=== PATIENT | female | born 1970 | race Caucasian/White ===

== ENCOUNTER → 2023-09-14 06:45 | Outpatient (REF) | payer OTHER, SELFPAY | LOC: RAD 06:45 | PROVIDERS: ATTENDING PHYSICIAN Internal Medicine Cardiovascular Disease; FAMILY PHYSICIAN Physician Assistant Medical | DX: D35.02 Benign neoplasm of left adrenal gland (principal) | CPT/HCPCS: 74150 ==

== ENCOUNTER → 2023-09-20 07:47 | Outpatient (REF) | payer OTHER, SELFPAY | LOC: RSP 07:47 | PROVIDERS: ATTENDING PHYSICIAN Internal Medicine Rheumatology; FAMILY PHYSICIAN Physician Assistant Medical | DX: M35.00 Sjogren syndrome, unspecified (principal); R05.3 Chronic cough; R76.8 Other specified abnormal immunological findings in serum | CPT/HCPCS: 94727; 94729; 88738; 94010 ==

== ENCOUNTER 2023-10-03 21:01 | Inpatient (IN) | payer OTHER, SELFPAY ==
[2023-10-03 17:43] VITALS: BP 135/84
[2023-10-03 18:12] LABS: % Basophils 0.4 % (0-2); % Eosinophils 1.3 % (0-6); % Immature Granulocytes 0.2 % (0-0.5); % Lymphocytes 24.3 % (20.5-51.1); % Monocytes 8.2 % (1.7-9.3); % Neutrophils 65.6 % (42.2-75.2); Absolute Eosinophils 0.1 10^3/uL (0-0.7); Absolute Lymphocytes 1.4 10^3/uL (1.2-3.4); Absolute Monocytes 0.5 10^3/uL (0.1-0.6); Absolute Neutrophils 3.7 10^3/uL (1.4-6.5); Hematocrit 35.3 % (37.0-47.0); Hemoglobin 12.3 g/dL (12.0-16.0); Mean Corp Hgb Conc. 34.8 g/dL (33.0-37.0); Mean Corpuscular Hgb 28.9 pg (27.0-31.0); Mean Corpuscular Volume 82.9 fL (81.0-99.0); Mean Platelet Volume 10.2 fL (7.4-10.4); Nucleated Red Blood Cells % 0 %; Platelet Count 269 10^3/uL (130-400); Red Blood Cell Count 4.26 10^6/uL (4.20-5.40); Red Cell Dist. Width 14.9 % (11.5-14.5); White Blood Cell Count 5.6 10^3/uL (4.8-10.8)
[2023-10-03 18:46] LABS: ALT (SGPT) 18 U/L (0-35); AST (SGOT) 27 U/L (14-36); Albumin 4.1 g/dl (3.5-5.0); Alkaline Phosphatase 102 U/L (38-126); Blood Urea Nitrogen 9 mg/dl (7-17); Calcium 9.3 mg/dl (8.4-10.2); Carbon Dioxide 18 mmol/L (22-30); Chloride 110 mmol/L (98-107); Glucose 110 mg/dl (70-99); Potassium 2.2 mmol/L (3.5-5.1); Sodium 137 mmol/L (135-145); Total Bilirubin 0.5 mg/dl (0.2-1.3); eGFR 44.99
--- NOTE | 2023-10-03 19:16 | ED.GENMED ---
History of Present Illness
General
Chief Complaint: Abnormal Lab Value
Source: patient
Exam Limitations: none
Time Seen by Provider: 10/03/23 19:14
Travel History
Have you had any contact with someone who has COVID-19?: No
Do you have any symptoms of coronavirus? Fever > 100 degrees, chills, cough, shortness of breath, sore throat, loss of taste or smell, muscle aches, or headache?: No
History of Present Illness
History of Present Illness:
Patient has felt off for months if not longer. Diagnosed with Sjogren's syndrome. Had a potassium of 3.0 in August. With continually not feeling well patient had labs done 3 days ago which showed a potassium of 2.5. Sent in for further care. No
chest pain or shortness of breath. Multiple other symptoms including a arthritis like picture in her feet general fatigue and weakness. Patient is not currently taking a diuretic.
Past History
Past History
ED Past Medical History: HTN, Hypercholesterolemia and Other (Sjogren syndrome); Negative IDDM or NIDDM
ED Past Surgical History: Gynecological; Negative Appendectomy, Bowel resection, Cardiac or Cholecystectomy
Social History
Tobacco: Non-smoker
Alcohol: None
Drug: None
Personal:
Living: with family
Employment: Employed
Family History
Family History: Other (Sister with gallbladder disease); Negative Early CAD or CAD
Phy Exam
Physical Exam
Physical Exam:
GENERAL: Alert and oriented in no apparent distress
EYE: Orbits normal.
NECK: Supple, no thyroid palpable
ENT: Pharynx without erythema
CARDIAC: Regular rate and rhythm without any obvious murmurs.
LUNGS: Clear breath sounds,normal
ABDOMEN: Soft, without focal tenderness or distention
NEUROLOGICAL: Alert and oriented , grossly non-focal
SKIN: Warm and dry, erythematous hue to both dorsal feet and erythematous hue to both cheeks
MUSCULOSKELETAL: Mild swelling of both dorsal feet
PSYCH: Normal and appropriate interaction.
Course
Orders/Labs/Results
Orders:
Orders
10/03/23 Dinner
Regular
At Your Request: Full Participation
10/03/23 17:47
EKG [Electrocardiogram (*1)] Urgent
Reason for Study: Other
Other Reason for Exam: hypokalemia
10/03/23 17:48
EKG- Treatment ONCE
10/03/23 18:00
Complete Blood Count/With Diff Urgent
Comprehensive Metabolic Panel Urgent
Magnesium Urgent
Comment: ADD ON
10/03/23 19:15
Add On- LAB Urgent
Tests Added?: magnesium
10/03/23 19:23
Potassium Chloride 10% Elixir [KCl Elixir] 40 meq PO NOW STA
10/03/23 19:44
Potassium Chloride [KCl] 40 meq 0.9% Sodium Chloride 250 ml [Nss] 250 ml IV NOW
10/03/23 20:17
Admit/Transfer Patient As Directed
Co-Sign Provider:
Level of Care: Inpatient admission
Assign to:: Telemetry
Physician / Group: fili
Diagnosis: hypokalemia
Reason for Telemetry: Arrhythmia
Date to Stop Telemetry: 10/06/23
Time to Stop Telemetry: 11:00
Reason for Hospitalization: hypokalemia
Expected length of stay greater than two midnights?: Yes
ELOS- Estimated Length of Stay in days: 2
I certify the patient meets the requirements for IP care: Yes
10/03/23 20:18
Code Status As Directed
Resuscitation Status: Full Code
10/03/23 20:33
0.9% Sodium Chloride 1000 ml [Nss] 1,000 ml IV 100 mls/hr
10/03/23 20:38
Urinalysis Reflex To Culture Urgent
Date Specimen was Collected: 10/03/23
Time Specimen was Collected: 20:34
Urine Microscopic Reflex Cult Urgent
10/03/23 21:52
Activity As Directed
Activity Level: As Tolerated
Vital Signs As Directed
Frequency: Per unit guidelines
DX Deep Vein Thrombosis Video Routine
10/04/23 06:00
Complete Blood Count/With Diff IN AM
Comprehensive Metabolic Panel IN AM
10/04/23 08:00
Heparin 5,000 units SC Q12
10/06/23 11:00
DC Protocol for Telemetry ONCE
Abnormal Lab Results
10/03/23 10/03/23
18:00 20:38
Hct 35.3 L %
(37.0-47.0)
RDW 14.9 H %
(11.5-14.5)
Potassium 2.2 L* mmol/L
(3.5-5.1)
Chloride 110 H mmol/L
(98-107)
Carbon Dioxide 18 L mmol/L
(22-30)
Creatinine 1.4 H mg/dL
(0.6-1.0)
Glucose 110 H mg/dl
(70-99)
Magnesium 2.5 H mg/dl
(1.6-2.3)
Leukocyte Esterase Rfl Trace A
(Negative)
10/03/23 18:00
10/03/23 18:00
Vital Signs
Initial and Last Documented VS:
Initial Vital Signs
Temp Pulse Resp BP Pulse Ox
99.1 F 89 18 135/84 99
10/03/23 17:43 10/03/23 17:43 10/03/23 17:43 10/03/23 17:43 10/03/23 17:43
Last Documented Vital Signs
Temp Pulse Resp BP Pulse Ox
98.1 F 78 18 102/62 100
10/03/23 23:05 10/03/23 23:05 10/03/23 23:05 10/03/23 23:05 10/03/23 23:05
MDM/Problems Addressed
Differential Diagnosis Includes:
Severe hypokalemia. 40 of potassium ordered orally. 40 IV. Patient currently being monitored. Hospitalist contacted.
*EKG
Interpreted by ED Provider?: Yes
Interpretation: abnormal
Comparison EKG: changes noted
Heart Rate: 78
Rhythm: sinus
[place]: normal axis
Interval: normal interval
QRS Pattern: normal QRS
Ischemia: T-wave inversion
*Critical Care Note
Total Time (30-74mins, 75-104mins- exclusive of procedures): Not Applicable
Data Reviewed
Review of Other/Old Records Reveals: Labs and Testing
ED Attending Note
-
Portions of this chart may have been created with voice recognition software.� Occasional wrong word or��sound alike� substitutions may have occurred due to the inherent limitations of voice recognition software.
Discharge Plan
Departure
Patient Disposition: Admit
Date of Disposition: 10/03/23
Time of Disposition: 19:39
Presentation/result/management discussed w/ accepting MD/DO: Hospitalist
Discharge Problem:
Severe hypokalemia
Interventions
Interventions:
*Risk Screen - Suicide Last Done: 10/03/23 19:40
*General Assessment Last Done: 10/03/23 19:40
*Neglect/Abuse Screening Last Done: 10/03/23 19:40
ED- Fall Risk Assessment Last Done: 10/03/23 19:40
*ED COVID-19 Vaccine History Last Done: 10/03/23 19:44
*Nursing Disposition Last Done: 10/03/23 21:54
Discharge Date and Time
Discharge Date/Time: 10/03/23 21:45
[2023-10-03 19:25] VITALS: BP 150/79
[2023-10-03 19:40] VITALS: BMI 26.2
[2023-10-03] MEDS: KCL ELIXIR 40 MEQ PO (19:51)
[2023-10-03 20:00] VITALS: BP 128/79
[2023-10-03 20:05] LABS: Magnesium 2.5 mg/dl (1.6-2.3)
[2023-10-03] MEDS: KCL 270 MEQ IV (20:14)
--- NOTE | 2023-10-03 20:20 | HPS.HSE ---
Family Physician
-
Family Physician: Bethany Arias
Chief Complaint
-
hypokalemia
History of Present Illness
53-year-old female past medical history of Sjogren syndrome, adrenal adenoma, hypertension, hypercholesteremia, hypokalemia presenting with lab work 3 days ago which showed potassium of 2.5.
Patient states that she was diagnosed with adrenal adenoma [address] Salas and started on eplerenone on that time. She states that since then eplerenone dosage needed to be increased. The adrenal adenoma was not followed for many years
but she recently had a CT scan in August which showed a second adenoma.
Patient states that she had elevated blood pressure at the time of the adrenal adenoma discovery. However in the past several years blood pressure has been stable. She recently was taken off of hydrochlorothiazide a few months ago after she was
diagnosed with Sjogren syndrome/possible lupus overlap syndrome few months ago. She was instead placed on losartan. She states that recently her blood pressure has been on the lower side sometimes as low as 90s.
Patient was recently having severe weakness, body pains, swelling and pain in her left big toe associated with swelling. She was tested negative for gout. She has been on several courses of prednisone for these joint pains/back pain.
She denies any nausea vomiting or diarrhea. She denies any abdominal pain. Denies chest pain or shortness of breath.
She has not started treatment for Sjogren's yet.
She denies smoking or alcohol use.
Medical History
Past Medical History
Past Medical History: Reports Other (Sjogren syndrome, adrenal adenoma, hypertension, hypercholesteremia, hypokalemia)
Past Surgical History: Reports
Social History
Tobacco: Non-smoker
Alcohol: None
Drug: None
Family History
Family History: Not pertinent
Allergies / Home Medications
Allergies reflects when Allergies were last updated in [employer].
Home Medications with original date entered in [employer]
Allergy/Medication List:
Allergies
Allergy/AdvReac Type Severity Reaction Status Date / Time
labetalol [Labetalol] Allergy Rash Verified 02/29/20 07:00
Review of Systems
-
History Source: Patient
A 12 point ROS was completed and negative except as noted: Yes
Constitutional: Reports No Symptoms
EENT: Reports No Symptoms
Respiratory: Reports No Symptoms
Cardiac: Reports No Symptoms
Abdomen/GI: Reports No Symptoms
: Reports No Symptoms
Musculoskeletal: Reports No Symptoms
Skin: Reports No Symptoms
Neurological: Reports No Symptoms
Endocrine: Reports No Symptoms
Hematologic/Lymphatic: Reports No Symptoms
Psych: Reports No Symptoms
Physical Exam
Vital Signs
Vital Signs
Temp Pulse Resp BP Pulse Ox
99.1 F 89 11 150/79 98
10/03/23 17:43 10/03/23 19:30 10/03/23 19:30 10/03/23 19:25 10/03/23 19:30
Physical Exam
General: Well Developed, Well Nourished and No Apparent Distress
HEENT: NormoCephalic, Moist mucous membranes and Atraumatic
Respiratory: Clear
Cardiac: S1/S2 and Regular Rhythm; No Murmur or Rub
GI: Soft, Non Tender, Non Distended and Normal Bowel Sounds; No Organomegaly
Rectal: Deferred by Provider
Musculoskeletal: No Clubbing, No Cyanosis and No Edema
Skin: No Rash
Neuro: Nonfocal/grossly intact
Laboratory Results
-
10/03/23 18:00
10/03/23 18:00
Laboratory Results
Total Bilirubin 0.5 mg/dl (0.2-1.3) 10/03/23 18:00
AST 27 U/L (14-36) 10/03/23 18:00
ALT 18 U/L (0-35) 10/03/23 18:00
Alkaline Phosphatase 102 U/L (38-126) 10/03/23 18:00
Data Reviewed
-
Lab Data: Labs Reviewed by me
Old Records: Reviewed
Impression/Plan
-
IMPRESSION:
PLAN:
# Severe hypokalemia, concern for underlying hyperaldosteronism
-EKG shows T wave inversions in leads V4 to V6
-Potassium repletion
-Check magnesium
-Check urinalysis
-Nephrology consulted
# Acute kidney injury, unclear etiology
-Low BUN suggesting ATN, possibly underlying kidney disease related to Sjogren's
-IV fluids
-Hold losartan, eplerenone
# History of adrenal adenoma
-Recent CT scan abdomen from August shows 2 small left adrenal nodules
-Hold eplerenone for now
Sjogren's syndrome
-Continue oxycodone
-follow up with rheumatology
Essential hypertension
-Holding losartan, epleronone for now
Hypercholesterolemia
-Continue statin
Full code
DVT prophylaxis�heparin
Regular diet
[2023-10-03] MEDS: NSS 1000 IV (20:39)
[2023-10-03 21:00] VITALS: BP 112/69
[2023-10-03 21:01] LABS: Urine Albumin Trace (Neg - Trace); Urine Bilirubin Negative (Negative); Urine Character Clear (Clear); Urine Color Yellow; Urine Glucose Negative (Negative); Urine Ketone Negative (Negative); Urine Leukocyte Trace (Negative); Urine Nitrite Negative (Negative); Urine Occult Blood Negative (Negative); Urine Urobilinogen Negative (Neg - 1+)
[2023-10-03 21:15] LABS: Urine Red Blood Cell None Seen /HPF (0-2); Urine Squamous Cell >30 /LPF (Few)
[2023-10-03 22:04] VITALS: BP 140/70; BMI 26.8
[2023-10-03 23:05] VITALS: BP 102/62
[2023-10-04] VITALS (7 sets, daily range): BP systolic 117–138; BP diastolic 70–80
[2023-10-04] MEDS: NSS IV (07:37)
[2023-10-04 08:07] LABS: % Basophils 0.6 % (0-2); % Eosinophils 2.1 % (0-6); % Immature Granulocytes 0.4 % (0-0.5); % Lymphocytes 31.4 % (20.5-51.1); % Monocytes 7.3 % (1.7-9.3); % Neutrophils 58.2 % (42.2-75.2); Absolute Eosinophils 0.1 10^3/uL (0-0.7); Absolute Lymphocytes 1.5 10^3/uL (1.2-3.4); Absolute Monocytes 0.4 10^3/uL (0.1-0.6); Absolute Neutrophils 2.8 10^3/uL (1.4-6.5); Hematocrit 35.1 % (37.0-47.0); Hemoglobin 11.9 g/dL (12.0-16.0); Mean Corp Hgb Conc. 33.9 g/dL (33.0-37.0); Mean Corpuscular Hgb 28.8 pg (27.0-31.0); Mean Platelet Volume 10.8 fL (7.4-10.4); Nucleated Red Blood Cells % 0 %; Platelet Count 261 10^3/uL (130-400); Red Blood Cell Count 4.13 10^6/uL (4.20-5.40); Red Cell Dist. Width 15.3 % (11.5-14.5); White Blood Cell Count 4.8 10^3/uL (4.8-10.8)
[2023-10-04] MEDS: LIPITOR 10 MG PO (08:15)
[2023-10-04 08:57] LABS: ALT (SGPT) 16 U/L (0-35); AST (SGOT) 24 U/L (14-36); Albumin 3.8 g/dl (3.5-5.0); Alkaline Phosphatase 97 U/L (38-126); Blood Urea Nitrogen 8 mg/dl (7-17); Carbon Dioxide 18 mmol/L (22-30); Chloride 114 mmol/L (98-107); Estimated Creatinine Clearance 60 ml/min; Glucose 91 mg/dl (70-99); Potassium 2.6 mmol/L (3.5-5.1); Sodium 141 mmol/L (135-145); Total Bilirubin 0.4 mg/dl (0.2-1.3); Total Protein 6.7 g/dl (6.3-8.2); eGFR 49.17
--- NOTE | 2023-10-04 09:01 | PTCARENOTE ---
Assumed care of pt at AM shift change. Pt AAOx3 with no acute complaints at this time. Patient ambulatory in hallway with daughter. Medication administered per AUG. Call freedman within reach, bed locked in lowest position. Plan of care ongoing.
[2023-10-04] MEDS: INSPRA 25 MG PO (09:53)
[2023-10-04] MEDS: NSS 1000 IV ×2 (11:46→20:23)
[2023-10-04] MEDS: KCL 270 MEQ IV (14:08)
[2023-10-04] MEDS: KCL 40 MEQ PO (14:08)
--- NOTE | 2023-10-04 14:14 | CM ---
Patient seen at bedside with physician. Patient states that she lives with her family in a 3 story home. Patient normally does not have any DME at home. Patient has been seeing a Physical therapist at [facility] and her PCP is Dr. Arias. Patient
uses the [facility] in [place] [phone]. CM will continue to follow for discharge planning needs.
Plan; home with VN vs home with no needs.
--- NOTE | 2023-10-04 14:33 | PTCARENOTE ---
IV KCl started at 67.5ml/hr at 1408, patient reporting chest discomfort shortly after. She describes 'twinges' in her chest around her heart, denies tightness. BP 133/70, HR 75. IV rate slowed to 40ml/hr. MD Reynoso made aware.
--- NOTE | 2023-10-04 15:00 | W.PN.HOSP.TC ---
Today's Communication/Plan
-
apprec renal
check EMG
TSH
cosyntropin STIM test
replete K
Assessment / Plan
Assessment / Plan
pt is a 53 year old female
Severe hypokalemia, concern for underlying hyperaldosteronism (has diagnosis of it since started on eplerenone 15 years ago)/RTA likely from Sjogren's and periodic paralysis of hypokalemia--but pt has also been on steroids intermittently--would
check cosyntropin STIM test, TSH with reflex, EMG--consideration for myasthenia w/u as well--magnesium WNL--apprec renal--cont K repletion
Acute kidney injury, unclear etiology--Low BUN suggesting ATN, possibly underlying kidney disease related to Sjogren's--IV fluids--Hold losartan--cont eplerenone
History of adrenal adenoma--Recent CT scan abdomen from August shows 2 small left adrenal nodules--would strongly consider eval for surgical removal
Sjogren's syndrome--Continue oxycodone--follow up with rheumatology
Essential hypertension--Holding losartan
Hypercholesterolemia-Continue statin
code status --Full code
DVT prophylaxis�heparin
Anticipated Discharge: > 48 hours
Subjective/Interval History
-
Date of Service: October 04, 2023
pt c/o painful legs, weak legs
Objective Data
-
Labs:
Laboratory Results
10/04/23
07:03
WBC 4.8
Hgb 11.9 L
Hct 35.1 L
Plt Count 261
Sodium 141
Potassium 2.6 L*
Chloride 114 H
Carbon Dioxide 18 L
BUN 8
Creatinine 1.3 H
Glucose 91
Calcium 9.0
Total Bilirubin 0.4
AST 24
ALT 16
Alkaline Phosphatase 97
Vital Signs:
max temp for 24 hours
10/04/23
11:58
Temp 98.7 F
Vital Signs
Temp Pulse Resp BP Pulse Ox
98.7 F 75 16 132/70 100
10/04/23 11:58 10/04/23 14:28 10/04/23 11:58 10/04/23 14:28 10/04/23 11:58
I&O
10/03/23 10/04/23 10/05/23
06:59 06:59 06:59
Intake Total 480 / 480
Balance 480 / 480
Review of Systems
-
All other systems: Reviewed and negative
Musculoskeletal: Reports Muscle Stiffness, Arthralgias, Myalgias and Muscle Weakness
Physical Exam
-
General: Well Developed, Well Nourished and No Apparent Distress
HEENT: Normocephalic and Atraumatic
Respiratory: Clear to Auscultation; Negative Wheezes or Rhonchi
Cardiac: Regular Rhythm and S1/S2; Negative Murmur
GI: Soft, Nontender, Nondistended and Normal Bowel Sounds
Musculoskeletal: No Clubbing, No Cyanosis and No Edema
Skin: Warm and Dry
Neuro: Awake and Alert
Psych: Calm
--- NOTE | 2023-10-04 16:21 | W.CON.NEPH ---
Consultation
-
Date/Time Consultation Requested: 10/03/23 22:03
Date/Time Consultation Performed: 10/04/23 4:21PM
Requesting Provider: Justine Fajardo
Performing Provider: Maria De Jesus Ziegler
Reason for Consultation: hypokalemia
Medical History
-
Chief Complaint: hypokalemia
History of Present Illness:
Ms. Chandler is a 53YOF with PMH of Sjogren syndrome, adrenal adenoma, HTN, DLD, hypokalemia who presents to the hospital after labs showed a K of 2.5.
Briefly, the patient states that she was diagnosed with adrenal adenoma 15 years ago by her [employer] bookkeeper Dr. Salas who had managed her with high doses of eplerenone. She has been maintained on this for a long time and was lost to follow up with
nephrology. The most recent imaging of her adrenal adenoma in August showed a second adenoma. She was also recently diagnosed with Sjogren syndrome/possible lupus overlap a few months ago and she was taken off her longstanding lisinopril and HCTZ.
Since then her blood pressures were elevated and she was initiated on losartan 50mg and continued on eplerenone 100mg. BPs were still high so her losartan was increased to 100mg. She has been having some lightheadedness and dizziness at home with
BPs as low as 90s/60s.
The patient also noted that she has been having severe weakness and body aches over the past few weeks, worsened over the past few days. She also does states that she has had numerous courses of prednisone for presumed gout? and for her back pain.
Past Medical History
Adrenal adenoma
HTN
DLD
hypokalemia
Sjogren/ syndrome/lupus overlap
Past Medical History: Other
Past Surgical History:
Social History
Tobacco: Non-Smoker
Alcohol: None
Drug: None
Personal:
Living: With Family
Family History
Mother with pseudogout
Allergies / Home Medications
Allergy/AdvReac Type Severity Reaction Status Date / Time
labetalol [Labetalol] Allergy Rash Verified 02/29/20 07:00
�Medication �Instructions �Recorded �Confirmed �Type
atorvastatin 10 mg tablet 10 mg PO DAILY High Cholesterol 10/03/23 10/03/23 History
betamethasone dipropionate 0.05 % 1 applic topical HS apply to right 10/03/23 10/03/23 History
topical cream 3rd finger
calcipotriene 0.005 % topical 1 applic topical HS apply to right 10/03/23 10/03/23 History
ointment 3rd finger
eplerenone 50 mg tablet 50 mg PO BID Heart 10/03/23 10/03/23 History
Disease/Condition
fluoride (sodium) 1.1 % dental 1 applic dental BID Infection 10/03/23 10/03/23 History
paste (Sodium Fluoride 5000 Dry
Mouth)
losartan 100 mg tablet 100 mg PO DAILY Blood Pressure 10/03/23 10/03/23 History
peg 400-propylene glycol (PF) 0.4 1 drp BOTH EYES DAILYPRN PRN dry 10/03/23 10/03/23 History
%-0.3 % eye drops in a dropperette eyes
(Systane (PF))
polyethylene glycol 3350 17 gram 17 g PO DAILY PRN constipation 10/03/23 10/03/23 History
oral powder packet (Miralax)
tizanidine 2 mg tablet 2 mg PO TID PRN muscle spasms 10/03/23 10/03/23 History
Review of Systems
-
History Source: Patient and Family
All other systems: Negative unless noted
Constitutional: Weight Loss, Fatigue and Sleep Disturbance
Abdomen/GI: Nausea and Constipated
: No Symptoms
Musculoskeletal: Joint Pain
Neurological: Dizzy and Weakness
Physical Exam
Vital Signs
Vital Signs
Temp Pulse Resp BP Pulse Ox
97.6 F 74 16 124/74 95
10/04/23 15:30 10/04/23 15:30 10/04/23 15:30 10/04/23 15:30 10/04/23 15:30
Lab Results
WBC 4.8 10^3/uL (4.8-10.8) 10/04/23 07:03
RBC 4.13 10^6/uL (4.20-5.40) L 10/04/23 07:03
Hgb 11.9 g/dL (12.0-16.0) L 10/04/23 07:03
Hct 35.1 % (37.0-47.0) L 10/04/23 07:03
Plt Count 261 10^3/uL (130-400) 10/04/23 07:03
Sodium 141 mmol/L (135-145) 10/04/23 07:03
Potassium 2.6 mmol/L (3.5-5.1) L* 10/04/23 07:03
Chloride 114 mmol/L (98-107) H 10/04/23 07:03
Carbon Dioxide 18 mmol/L (22-30) L 10/04/23 07:03
BUN 8 mg/dl (7-17) 10/04/23 07:03
Creatinine 1.3 mg/dL (0.6-1.0) H 10/04/23 07:03
eGFR 49.17 10/04/23 07:03
Glucose 91 mg/dl (70-99) 10/04/23 07:03
Calcium 9.0 mg/dl (8.4-10.2) 10/04/23 07:03
Albumin 3.8 g/dl (3.5-5.0) 10/04/23 07:03
Physical Exam
General: AOx3, No Distress and Nontoxic
HEENT: PERRL, EOMI, Anicteric, Conjunctivae Clear, Ear/Nose Intact and Hearing Normal
Respiratory: Clear
Cardiac: S1/S2, Regular Rate/Rhythm and No Edema
Breast: Deferred by me
Abdomen: Soft, Nontender, Nondistended, Normal Bowel Sounds and No Hepatosplenomegaly
Rectal: Deferred by Provider
Musculoskeletal: No Clubbing, No Cyanosis and No Edema
Skin: No Clubbing, No Cyanosis and Other (redness noted on the bilateral lower extremities)
Neuro: Nonfocal/Grossly Intact
Hematologic/Lymphatic: No Cervical Lymphadenopathy
Psych: Mood/afflect pleasant, Insight/judgement good and Appropriate
Assessment/Plan
-
Assessment:
Sjogrens/lupus overlap
TREASURE (bl Cr 1, up to 1.5 as outpatient)
hypokalemia
adrenal adenoma
HTN
DLD
Plan:
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
- this could also explain her bilateral renal stones as well
- i would prefer that we correct her hypoK prior to initiating bicarb therapy
- tomorrow, i will plan to initiate sodium bicarb gtt to correct acidosis and then plan for PO bicarb vs K citrate as outpatient
- Cr improving with fluids which is reassuring (especially in the setting of underlying lupus) and urine is also bland (no proteinuria or hematuria)
- regarding her adrenal adenoma, she has beenconfirmed to have primary cherry. on stable treatment for many years and doing well with it. she states she has never been evaluated by surgery which should be done (likely can pursue as an outpatient).
restarted eplerenone while inpatient
- gout/pseudogout defer to primary team/rheumatology
Once her acute issues resolve, she is planned for follow up with Dr. Salas on 10/13
Data Reviewed
-
CT Scan: Report Reviewed by me
Labs: Labs Reviewed by me, Discussed with Physician and Discussed with Patient
Old Records: Reviewed
[2023-10-05] VITALS (8 sets, daily range): BP systolic 113–144; BP diastolic 70–84; PULSE 70–75; O2SAT 98
[2023-10-05] MEDS: NSS 1000 IV (08:29)
[2023-10-05] MEDS: INSPRA 25 MG PO (08:29)
[2023-10-05] MEDS: LIPITOR 10 MG PO (08:29)
[2023-10-05 08:48] LABS: Hematocrit 31.9 % (37.0-47.0); Hemoglobin 10.6 g/dL (12.0-16.0); Mean Corp Hgb Conc. 33.2 g/dL (33.0-37.0); Mean Corpuscular Hgb 28.9 pg (27.0-31.0); Mean Corpuscular Volume 86.9 fL (81.0-99.0); Mean Platelet Volume 10.8 fL (7.4-10.4); Platelet Count 216 10^3/uL (130-400); Red Blood Cell Count 3.67 10^6/uL (4.20-5.40); Red Cell Dist. Width 15.3 % (11.5-14.5); White Blood Cell Count 4.2 10^3/uL (4.8-10.8)
[2023-10-05 09:26] LABS: Blood Urea Nitrogen 5 mg/dl (7-17); Calcium 8.7 mg/dl (8.4-10.2); Carbon Dioxide 17 mmol/L (22-30); Chloride 112 mmol/L (98-107); Estimated Creatinine Clearance 65 ml/min; Glucose 85 mg/dl (70-99); Potassium 2.6 mmol/L (3.5-5.1); Sodium 140 mmol/L (135-145); eGFR 54.13
[2023-10-05] MEDS: CORTROSYN 0.25 MG IV (09:34)
[2023-10-05] MEDS: NSS (PRESERVATIVE FREE) 1 ML IV (09:35)
[2023-10-05 09:43] LABS: TSH Reflex To Free T4 2.34 uIU/ml (0.47-4.68)
[2023-10-05 10:03] LABS: Creatine Phosphokinase 162 U/L (30-135)
[2023-10-05] MEDS: KCL 40 MEQ PO (10:09)
[2023-10-05 10:13] LABS: ACTH Stim Cortisol 0 Min 11.5 ug/dl
[2023-10-05 11:09] LABS: ACTH Stim Cortisol 30 Min 27.5 ug/dl
[2023-10-05 11:59] LABS: ACTH Stim Cortisol 60 Min 36.3 ug/dl
--- NOTE | 2023-10-05 15:18 | CM ---
Patient seen at bedside, daughter also present. Patient indicated that she had seen Dr. Weiner and he was planning to see her for further testing. CM will continue to follow for discharge planning needs.
Plan; home with VN vs home with no needs.
[2023-10-05] MEDS: KCL PO ×2 (15:41→15:46)
--- NOTE | 2023-10-05 17:42 | W.PN.HOSP.TC ---
Today's Communication/Plan
-
apprec all consultants
cont K repletion--trend K
Assessment / Plan
Assessment / Plan
pt is a 53 year old female
Severe hypokalemia, concern for underlying hyperaldosteronism (has diagnosis of it since started on eplerenone 15 years ago)/RTA likely from Sjogren's and periodic paralysis of hypokalemia--but pt has also been on steroids
intermittently--cosyntropin STIM test WNL, TSH with reflex WNL, check EMG--consideration for myasthenia w/u as well--magnesium WNL--apprec renal--cont K repletion--changing to oral
Acute kidney injury, unclear etiology--Low BUN suggesting ATN, possibly underlying kidney disease related to Sjogren's--stop IV fluids--Hold losartan--cont eplerenone
History of adrenal adenoma--Recent CT scan abdomen from August shows 2 small left adrenal nodules--would strongly consider eval for surgical removal
Sjogren's syndrome--Continue oxycodone--follow up with rheumatology
Essential hypertension--Holding losartan
Hypercholesterolemia-Continue statin
code status --Full code
DVT prophylaxis�heparin
Anticipated Discharge: > 48 hours
Subjective/Interval History
-
Date of Service: October 05, 2023
pt maybe a bit better
Objective Data
-
Labs:
Laboratory Results
10/05/23
08:24
WBC 4.2 L
Hgb 10.6 L
Hct 31.9 L
Plt Count 216
Sodium 140
Potassium 2.6 L*
Chloride 112 H
Carbon Dioxide 17 L
BUN 5 L
Creatinine 1.2 H
Glucose 85
Calcium 8.7
Vital Signs:
max temp for 24 hours
10/04/23
23:31
Temp 98.1 F
Vital Signs
Temp Pulse Resp BP Pulse Ox
98.4 F 68 16 113/71 98
10/05/23 15:30 10/05/23 15:30 10/05/23 15:30 10/05/23 15:30 10/05/23 15:30
I&O
10/04/23 10/05/23 10/06/23
06:59 06:59 06:59
Intake Total 480 / 480 3840 / 3840
Balance 480 / 480 3840 / 3840
Review of Systems
-
All other systems: Reviewed and negative
Physical Exam
-
General: Well Developed, Well Nourished and No Apparent Distress
HEENT: Normocephalic and Atraumatic
Respiratory: Clear to Auscultation; Negative Wheezes or Rhonchi
Cardiac: Regular Rhythm and S1/S2; Negative Murmur
GI: Soft, Nontender, Nondistended and Normal Bowel Sounds
Musculoskeletal: No Clubbing, No Cyanosis and No Edema
Skin: Warm
Neuro: Awake
--- NOTE | 2023-10-05 17:43 | W.PN.NEPH.PH ---
Addendum entered and electronically signed by Marcella Montanez MD 10/05/23 17:52:
total potassium supplement today 120meq but suspect may need more as deficit seem to be high
Original Note:
Today's Communication / Plan
-
see plan
Assessment/Plan
-
Assessment:
Sjogrens/lupus overlap
TREASURE (bl Cr 1, up to 1.5 as outpatient)
hypokalemia
adrenal adenoma
HTN
DLD
Plan:
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
- this could also explain her bilateral renal stones as well
- i would prefer that we correct her hypoK prior to initiating bicarb therapy
Pt has difficulty to take po kcl pills, elixir ordered, missed Pm dose of kcl-dose with IV , repeat labs tonight before po dose
mild TREASURE-cr better at 1.2 suspect prerenal as the cause(especially in the setting of underlying lupus) and urine is also bland (no proteinuria or hematuria)
- regarding her adrenal adenoma, she has been confirmed to have primary cherry. on stable treatment(Eplerenone 100BID) for many years and doing well with it.
Lately her dose was reduced for different reason which likely exaggerated her hypokalemia too
will resume full dose as she was before 100mg BID
adrenal adenoma w/u as out pt
- gout/pseudogout defer to primary team/rheumatology
d/w primary
d/w pt and daughter in detail, answered many questions
Once her acute issues resolve, she is planned for follow up with Dr. Salas on 10/13
-
-
Date of Service: October 05, 2023
CC / HPI / ROS
-
Chief Complaint:
hypokalemia, met acidosis
History of Present Illness:
cr better at 1.2, k still low 2.6
bicarb low 17. bp stable
Review of Systems:
still with weakness of legs, some what better since admit
no n/v
no cp or sob
Labs
-
Labs:
WBC 4.2 10^3/uL (4.8-10.8) L 10/05/23 08:24
RBC 3.67 10^6/uL (4.20-5.40) L 10/05/23 08:24
Hgb 10.6 g/dL (12.0-16.0) L 10/05/23 08:24
Hct 31.9 % (37.0-47.0) L 10/05/23 08:24
Plt Count 216 10^3/uL (130-400) 10/05/23 08:24
Sodium 140 mmol/L (135-145) 10/05/23 08:24
Potassium 2.6 mmol/L (3.5-5.1) L* 10/05/23 08:24
Chloride 112 mmol/L (98-107) H 10/05/23 08:24
Carbon Dioxide 17 mmol/L (22-30) L 10/05/23 08:24
BUN 5 mg/dl (7-17) L 10/05/23 08:24
Creatinine 1.2 mg/dL (0.6-1.0) H 10/05/23 08:24
eGFR 54.13 10/05/23 08:24
Glucose 85 mg/dl (70-99) 10/05/23 08:24
Calcium 8.7 mg/dl (8.4-10.2) 10/05/23 08:24
Albumin 3.8 g/dl (3.5-5.0) 10/04/23 07:03
Physical Exam
-
Vital Signs:
Vital Signs
Temp Pulse Resp BP Pulse Ox
98.4 F 68 16 113/71 98
10/05/23 15:30 10/05/23 15:30 10/05/23 15:30 10/05/23 15:30 10/05/23 15:30
Cardiovascular:: Regular rate and rhythm
Respiratory:: Bilateral: CTA
Lung Excursion:: Normal
Abdomen:: Nontender and Soft
Extremity Edema:: None: Bilateral:
Hoover Catheter: No
[2023-10-05] MEDS: NSS IV (17:44)
[2023-10-05] MEDS: KCL 270 MEQ IV (18:20)
[2023-10-05] MEDS: INSPRA 100 MG PO (20:56)
[2023-10-05] MEDS: KCL ELIXIR 40 MEQ PO (21:02)
[2023-10-05 22:33] LABS: Potassium 3.2 mmol/L (3.5-5.1)
[2023-10-06 04:02] VITALS: BP 135/86
[2023-10-06 07:30] VITALS: BP 124/80
[2023-10-06 08:38] LABS: Hematocrit 30.4 % (37.0-47.0); Hemoglobin 10.4 g/dL (12.0-16.0); Mean Corp Hgb Conc. 34.2 g/dL (33.0-37.0); Mean Corpuscular Hgb 29.1 pg (27.0-31.0); Mean Corpuscular Volume 85.2 fL (81.0-99.0); Mean Platelet Volume 10.4 fL (7.4-10.4); Platelet Count 205 10^3/uL (130-400); Red Blood Cell Count 3.57 10^6/uL (4.20-5.40); Red Cell Dist. Width 15.2 % (11.5-14.5); White Blood Cell Count 4.2 10^3/uL (4.8-10.8)
[2023-10-06] MEDS: LIPITOR 10 MG PO (09:13)
[2023-10-06] MEDS: INSPRA 100 MG PO ×2 (09:13→19:58)
[2023-10-06] MEDS: KCL ELIXIR 40 MEQ PO ×4 (09:13→21:48)
[2023-10-06 09:21] LABS: Blood Urea Nitrogen 6 mg/dl (7-17); Calcium 8.5 mg/dl (8.4-10.2); Carbon Dioxide 15 mmol/L (22-30); Chloride 119 mmol/L (98-107); Estimated Creatinine Clearance 65 ml/min; Glucose 87 mg/dl (70-99); Magnesium 2.3 mg/dl (1.6-2.3); Potassium 2.5 mmol/L (3.5-5.1); Sodium 140 mmol/L (135-145); eGFR 54.13
[2023-10-06 11:47] VITALS: BP 131/73
[2023-10-06] MEDS: KCL 270 MEQ IV (12:08)
--- NOTE | 2023-10-06 13:48 | W.PN.HOSP.TC ---
Today's Communication/Plan
-
still repleting potassium
plan for 200 mEQ today total
Assessment / Plan
Assessment / Plan
pt is a 53 year old female
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
check EMG--consideration for myasthenia w/u as well--magnesium WNL--apprec renal--cont K repletion--changed to oral QID
Acute kidney injury, unclear etiology--Low BUN suggesting ATN, possibly underlying kidney disease related to Sjogren's--stop IV fluids--Hold losartan--cont eplerenone
History of adrenal adenoma--Recent CT scan abdomen from August shows 2 small left adrenal nodules--would strongly consider eval for surgical removal
Sjogren's syndrome--Continue oxycodone--follow up with rheumatology
Essential hypertension--Holding losartan
Hypercholesterolemia-Continue statin
code status --Full code
DVT prophylaxis�heparin
Anticipated Discharge: > 48 hours
Subjective/Interval History
-
Date of Service: October 06, 2023
pt doing better
Objective Data
-
Labs:
Laboratory Results
10/06/23
08:09
WBC 4.2 L
Hgb 10.4 L
Hct 30.4 L
Plt Count 205
Sodium 140
Potassium 2.5 L*
Chloride 119 H
Carbon Dioxide 15 L
BUN 6 L
Creatinine 1.2 H
Glucose 87
Calcium 8.5
Vital Signs:
max temp for 24 hours
10/06/23
04:02
Temp 97.7 F
Vital Signs
Temp Pulse Resp BP Pulse Ox
97.5 F 75 20 131/73 98
10/06/23 11:47 10/06/23 11:47 10/06/23 11:47 10/06/23 11:47 10/06/23 11:47
I&O
10/05/23 10/06/23 10/07/23
06:59 06:59 06:59
Intake Total 3840 / 3840 3180 / 3180
Balance 3840 / 3840 3180 / 3180
Review of Systems
-
All other systems: Reviewed and negative
Physical Exam
-
General: Well Developed, Well Nourished and No Apparent Distress
HEENT: Normocephalic and Atraumatic
Respiratory: Clear to Auscultation; Negative Wheezes or Rhonchi
Cardiac: Regular Rhythm and S1/S2; Negative Murmur
GI: Soft, Nontender, Nondistended and Normal Bowel Sounds
Musculoskeletal: No Clubbing, No Cyanosis and No Edema
Skin: Warm
Neuro: Awake
--- NOTE | 2023-10-06 14:57 | CM ---
Patient seen bedside.
Potassium being repleted.
OOB ambulating independently in the [place].
Plan: home no needs.
[2023-10-06 15:00] VITALS: BP 127/82
--- NOTE | 2023-10-06 17:59 | W.PN.NEPH.PH ---
Today's Communication / Plan
-
see plan
suspect her potassium deficit larger and need more replacement
resume Losartan, cont Eplerenone 100 BID
check U k
Assessment/Plan
-
Assessment:
Sjogrens/lupus overlap
TREASURE (bl Cr 1, up to 1.5 as outpatient)
hypokalemia
adrenal adenoma
HTN
DLD
Plan:
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
- this could also explain her bilateral renal stones as well
- i would prefer that we correct her hypoK prior to initiating bicarb therapy
Pt has difficulty to take po kcl pills, elixir ordered
mild TREASURE-cr better at 1.2 suspect prerenal as the cause(especially in the setting of underlying lupus) and urine is also bland (no proteinuria or hematuria)
- regarding her adrenal adenoma, she has been confirmed to have primary cherry. on stable treatment(Eplerenone 100BID) for many years and doing well with it.
Lately her dose was reduced for different reason which likely exaggerated her hypokalemia too
cont 100mg BID and resume Losartan too
total potassium try to give 200meq today, check urine k
adrenal adenoma w/u as out pt
- gout/pseudogout defer to primary team/rheumatology
d/w primary
d/w pt in detail, answered many questions
Once her acute issues resolve, she is planned for follow up with Dr. Salas on 10/13
-
-
Date of Service: October 06, 2023
CC / HPI / ROS
-
Chief Complaint:
hypokalemia, met acidosis
History of Present Illness:
cr stable at 1.2, k still low 2.6
bicarb low 15. bp stable
Review of Systems:
improving weakness of legs,
no n/v
no cp or sob
Labs
-
Labs:
WBC 4.2 10^3/uL (4.8-10.8) L 10/06/23 08:09
RBC 3.57 10^6/uL (4.20-5.40) L 10/06/23 08:09
Hgb 10.4 g/dL (12.0-16.0) L 10/06/23 08:09
Hct 30.4 % (37.0-47.0) L 10/06/23 08:09
Plt Count 205 10^3/uL (130-400) 10/06/23 08:09
Sodium 140 mmol/L (135-145) 10/06/23 08:09
Potassium 2.5 mmol/L (3.5-5.1) L* 10/06/23 08:09
Chloride 119 mmol/L (98-107) H 10/06/23 08:09
Carbon Dioxide 15 mmol/L (22-30) L 10/06/23 08:09
BUN 6 mg/dl (7-17) L 10/06/23 08:09
Creatinine 1.2 mg/dL (0.6-1.0) H 10/06/23 08:09
eGFR 54.13 10/06/23 08:09
Glucose 87 mg/dl (70-99) 10/06/23 08:09
Calcium 8.5 mg/dl (8.4-10.2) 10/06/23 08:09
Albumin 3.8 g/dl (3.5-5.0) 10/04/23 07:03
Physical Exam
-
Vital Signs:
Vital Signs
Temp Pulse Resp BP Pulse Ox
97.7 F 65 20 127/82 100
10/06/23 15:00 10/06/23 15:00 10/06/23 15:00 10/06/23 15:00 10/06/23 15:00
Cardiovascular:: Regular rate and rhythm
Respiratory:: Bilateral: CTA
Lung Excursion:: Normal
Abdomen:: Nontender and Soft
Extremity Edema:: None: Bilateral: (trace)
Hoover Catheter: No
[2023-10-06 20:01] VITALS: BP 144/79
[2023-10-06 20:39] LABS: Urine Potassium 40.8 mmol/L (30-90)
[2023-10-06 23:38] VITALS: BP 131/68
[2023-10-07 03:34] VITALS: BP 135/66
[2023-10-07] MEDS: ULTRAM 25 MG PO (03:54)
[2023-10-07 07:30] VITALS: BP 133/87
[2023-10-07 08:08] LABS: Hematocrit 29.5 % (37.0-47.0); Hemoglobin 9.8 g/dL (12.0-16.0); Mean Corp Hgb Conc. 33.2 g/dL (33.0-37.0); Mean Corpuscular Hgb 28.8 pg (27.0-31.0); Mean Corpuscular Volume 86.8 fL (81.0-99.0); Mean Platelet Volume 10.8 fL (7.4-10.4); Platelet Count 196 10^3/uL (130-400); Red Cell Dist. Width 15.3 % (11.5-14.5)
[2023-10-07] MEDS: LIPITOR 10 MG PO (08:36)
[2023-10-07] MEDS: KCL ELIXIR 40 MEQ PO ×6 (08:36→22:46)
[2023-10-07] MEDS: COZAAR 100 MG PO (08:36)
[2023-10-07] MEDS: INSPRA 100 MG PO ×2 (08:36→19:42)
[2023-10-07 09:02] LABS: Blood Urea Nitrogen 5 mg/dl (7-17); Calcium 8.2 mg/dl (8.4-10.2); Carbon Dioxide 14 mmol/L (22-30); Chloride 117 mmol/L (98-107); Estimated Creatinine Clearance 70 ml/min; Glucose 86 mg/dl (70-99); Potassium 3.1 mmol/L (3.5-5.1); Sodium 140 mmol/L (135-145); eGFR > 60.00
[2023-10-07 11:45] VITALS: BP 134/86
--- NOTE | 2023-10-07 12:48 | CM ---
Patient seen at bedside, patient with Dr. Weiner and involved in testing. CM will return to check on patient, currently no concerns. CM will continue to follow for discharge planning needs.
Plan; home with family, watch for VN needs
--- NOTE | 2023-10-07 13:34 | NS.EMG ---
Electromyogram (EMG) Study
EMG/NCS Summary
EMG/NCS of the left upper and left lower extremities is normal.
Repetitive nerve stimulation technique recording from the left abductor digiti minimi and left upper trapezius is normal.
Full dictated report and tabular data to follow.
--- NOTE | 2023-10-07 13:37 | W.PN.HOSP.TC ---
Today's Communication/Plan
-
resume losartan
K repletion
Assessment / Plan
Assessment / Plan
pt is a 53 year old female
Severe hypokalemia
- h/o of hyperaldosteronism (started on eplerenone 15 years ago)/RTA likely from Sjogren's and periodic paralysis of hypokalemia
-has also been on steroids intermittently: cosyntropin STIM test WNL
-TSH with reflex WNL
-Can check EMG outpatient--consideration for myasthenia w/u as well
-magnesium WNL--apprec renal--cont K repletion--changed to oral QID
-Restart losartan
-Eplerenone 100mg BID
Acute kidney injury
-unclear etiology--Low BUN suggesting ATN
-resolved
-possibly underlying kidney disease related to Sjogren's-
-cont eplerenone
#Anion gap metabolic acidosis
-hold on bicarb due to hypokalemia
History of adrenal adenoma--Recent CT scan abdomen from August shows 2 small left adrenal nodules--would strongly consider eval for surgical removal
Sjogren's syndrome--Continue oxycodone--follow up with rheumatology
Essential hypertension--Holding losartan
Hypercholesterolemia-Continue statin
code status --Full code
DVT prophylaxis�heparin
Anticipated Discharge: Within 24 hours
Subjective/Interval History
-
Date of Service: October 07, 2023
no acute events
Objective Data
-
Labs:
Laboratory Results
10/07/23
07:35
WBC 4.0 L
Hgb 9.8 L
Hct 29.5 L
Plt Count 196
Sodium 140
Potassium 3.1 L
Chloride 117 H
Carbon Dioxide 14 L*
BUN 5 L
Creatinine 1.1 H
Glucose 86
Calcium 8.2 L
Vital Signs:
Vital Signs
Temp Pulse Resp BP Pulse Ox
98.1 F 68 18 134/86 97
10/07/23 11:45 10/07/23 11:45 10/07/23 11:45 10/07/23 11:45 10/07/23 11:45
I&O
10/06/23 10/07/23 10/08/23
06:59 06:59 06:59
Intake Total 3180 / 3180 1320 / 1320
Balance 3180 / 3180 1320 / 1320
Review of Systems
-
History Source: Patient
All other systems: Reviewed and negative
Physical Exam
-
General: Well Developed, Well Nourished and No Apparent Distress
HEENT: Normocephalic and Atraumatic
Respiratory: Clear to Auscultation; Negative Wheezes or Rhonchi
Cardiac: Regular Rhythm and S1/S2; Negative Murmur
GI: Soft, Nontender, Nondistended and Normal Bowel Sounds
Musculoskeletal: No Clubbing, No Cyanosis and No Edema
Skin: Warm
Neuro: Awake
Data Reviewed
-
Labs: Labs Reviewed by me
--- NOTE | 2023-10-07 14:18 | W.PN.NEPH.PH ---
Today's Communication / Plan
-
- K repletion as per primary
Assessment/Plan
-
Assessment:
Sjogrens/lupus overlap
TREASURE (bl Cr 1, up to 1.5 as outpatient)
hypokalemia
adrenal adenoma
HTN
DLD
Plan:
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
- this could also explain her bilateral renal stones as well
- i would prefer that we correct her hypoK prior to initiating bicarb therapy
Pt has difficulty to take po kcl pills, elixir ordered by primary. if needed, okay for IV repletion as well.
mild TREASURE-cr better at 1.2=1 suspect prerenal as the cause(especially in the setting of underlying lupus) and urine is also bland (no proteinuria or hematuria)
Adrenal adenoma
regarding her adrenal adenoma, she has been confirmed to have primary cherry. on stable treatment(Eplerenone 100BID) for many years and doing well with it.
Lately her dose was reduced for different reason which likely exaggerated her hypokalemia too
cont 100mg BID and resume Losartan too
total potassium try to give 160meq today
adrenal adenoma w/u as out pt
gout/pseudogout defer to primary team/rheumatology
d/w primary
d/w pt in detail
Once her acute issues resolve, she is planned for follow up with Dr. Salas on 10/13
-
-
Date of Service: October 07, 2023
CC / HPI / ROS
-
Chief Complaint:
hypokalemia, met acidosis
History of Present Illness:
cr stable at 1.1, k still low 3.1
bicarb low 14. bp stable
Review of Systems:
improving weakness of legs,
no n/v
no cp or sob
Labs
-
Labs:
WBC 4.0 10^3/uL (4.8-10.8) L 10/07/23 07:35
RBC 3.40 10^6/uL (4.20-5.40) L 10/07/23 07:35
Hgb 9.8 g/dL (12.0-16.0) L 10/07/23 07:35
Hct 29.5 % (37.0-47.0) L 10/07/23 07:35
Plt Count 196 10^3/uL (130-400) 10/07/23 07:35
Sodium 140 mmol/L (135-145) 10/07/23 07:35
Potassium 3.1 mmol/L (3.5-5.1) L 10/07/23 07:35
Chloride 117 mmol/L (98-107) H 10/07/23 07:35
Carbon Dioxide 14 mmol/L (22-30) L* 10/07/23 07:35
BUN 5 mg/dl (7-17) L 10/07/23 07:35
Creatinine 1.1 mg/dL (0.6-1.0) H 10/07/23 07:35
eGFR > 60.00 10/07/23 07:35
Glucose 86 mg/dl (70-99) 10/07/23 07:35
Calcium 8.2 mg/dl (8.4-10.2) L 10/07/23 07:35
Albumin 3.8 g/dl (3.5-5.0) 10/04/23 07:03
Physical Exam
-
Vital Signs:
Vital Signs
Temp Pulse Resp BP Pulse Ox
98.1 F 68 18 134/86 97
10/07/23 11:45 10/07/23 11:45 10/07/23 11:45 10/07/23 11:45 10/07/23 11:45
Cardiovascular:: Regular rate and rhythm
Respiratory:: Bilateral: Coarse
Lung Excursion:: Normal
Abdomen:: Nontender and Soft
Bowel Sounds:: Normal
Extremity Edema:: +1: Bilateral:
Hoover Catheter: No
[2023-10-07] MEDS: ZANAFLEX 2 MG PO ×2 (14:40→22:46)
[2023-10-07 15:00] VITALS: BP 125/68
[2023-10-07 19:36] VITALS: BP 108/78
[2023-10-07 23:28] VITALS: BP 118/73
[2023-10-08 03:47] VITALS: BP 117/76
[2023-10-08 07:55] VITALS: BP 136/75
[2023-10-08] MEDS: KCL ELIXIR 40 MEQ PO ×2 (08:10→21:20)
[2023-10-08] MEDS: LIPITOR 10 MG PO (08:10)
[2023-10-08] MEDS: INSPRA 100 MG PO ×2 (08:10→21:20)
[2023-10-08] MEDS: COZAAR 100 MG PO (08:10)
[2023-10-08 08:16] LABS: Hematocrit 32.9 % (37.0-47.0); Hemoglobin 10.8 g/dL (12.0-16.0); Mean Corp Hgb Conc. 32.8 g/dL (33.0-37.0); Mean Corpuscular Hgb 29.4 pg (27.0-31.0); Mean Corpuscular Volume 89.6 fL (81.0-99.0); Mean Platelet Volume 10.8 fL (7.4-10.4); Platelet Count 215 10^3/uL (130-400); Red Blood Cell Count 3.67 10^6/uL (4.20-5.40); Red Cell Dist. Width 15.2 % (11.5-14.5); White Blood Cell Count 4.9 10^3/uL (4.8-10.8)
[2023-10-08 08:47] LABS: Blood Urea Nitrogen 5 mg/dl (7-17); Calcium 8.8 mg/dl (8.4-10.2); Carbon Dioxide 18 mmol/L (22-30); Chloride 115 mmol/L (98-107); Estimated Creatinine Clearance 77 ml/min; Glucose 83 mg/dl (70-99); Potassium 4.1 mmol/L (3.5-5.1); Sodium 140 mmol/L (135-145); eGFR > 60.00
[2023-10-08] MEDS: SODIUM BICARBONATE 1150 MEQ IV (10:59)
[2023-10-08] MEDS: ZANAFLEX 2 MG PO ×2 (11:15→21:20)
[2023-10-08 11:47] VITALS: BP 121/69
--- NOTE | 2023-10-08 14:22 | W.PN.NEPH.PH ---
Today's Communication / Plan
-
- sodium bicarb gtt
Assessment/Plan
-
Assessment:
Sjogrens/lupus overlap
TREASURE (bl Cr 1, up to 1.5 as outpatient)
hypokalemia
adrenal adenoma
HTN
DLD
Plan:
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
- this could also explain her bilateral renal stones as well
- K finall >4, initiated sodium bicarb gtt today. transition to PO tomorrow
- Pt has difficulty to take po kcl pills, elixir ordered by primary. if needed, okay for IV repletion as well.
- mild TREASURE-cr better at 1. suspect prerenal as the cause(especially in the setting of underlying lupus) and urine is also bland (no proteinuria or hematuria)
Adrenal adenoma
- regarding her adrenal adenoma, she has been confirmed to have primary cherry. on stable treatment(Eplerenone 100BID) for many years and doing well with it.
- Lately her dose was reduced for different reason which likely exaggerated her hypokalemia too
- cont 100mg BID and resume Losartan too
- total potassium try to give 80 meQ today
- adrenal adenoma w/u as out pt
gout/pseudogout defer to primary team/rheumatology
d/w primary
d/w pt in detail
Once her acute issues resolve, she is planned for follow up with Dr. Salas on 10/13
-
-
Date of Service: October 08, 2023
CC / HPI / ROS
-
Chief Complaint:
hypokalemia, met acidosis
History of Present Illness:
cr stable at 1, K 4.1
bicarb low 18. bp stable
Review of Systems:
improving weakness of legs,
no n/v
no cp or sob
Labs
-
Labs:
WBC 4.9 10^3/uL (4.8-10.8) 10/08/23 07:44
RBC 3.67 10^6/uL (4.20-5.40) L 10/08/23 07:44
Hgb 10.8 g/dL (12.0-16.0) L 10/08/23 07:44
Hct 32.9 % (37.0-47.0) L 10/08/23 07:44
Plt Count 215 10^3/uL (130-400) 10/08/23 07:44
eGFR > 60.00 10/08/23 07:44
Albumin 3.8 g/dl (3.5-5.0) 10/04/23 07:03
Physical Exam
-
Vital Signs:
Vital Signs
Temp Pulse Resp BP Pulse Ox
97.8 F 55 18 121/69 98
10/08/23 11:47 10/08/23 11:47 10/08/23 11:47 10/08/23 11:47 10/08/23 11:47
Cardiovascular:: Regular rate and rhythm
Respiratory:: Bilateral: CTA
Lung Excursion:: Normal
Abdomen:: Nontender and Soft
Bowel Sounds:: Normal
Extremity Edema:: None: Bilateral:
Hoover Catheter: No
--- NOTE | 2023-10-08 14:47 | W.PN.HOSP.TC ---
Today's Communication/Plan
-
switch to 80meq K daily and monitor
Start Bicarb ggt
Assessment / Plan
Assessment / Plan
pt is a 53 year old female
Severe hypokalemia
- h/o of hyperaldosteronism (started on eplerenone 15 years ago)/RTA likely from Sjogren's and periodic paralysis of hypokalemia
-has also been on steroids intermittently: cosyntropin STIM test WNL
-K repletion - switch to 80meq daily and monitor
-TSH with reflex WNL
-Can check EMG outpatient--consideration for myasthenia w/u as well
-magnesium WNL--apprec renal--cont K repletion
-Restart losartan
-Eplerenone 100mg BID
Acute kidney injury
-unclear etiology--Low BUN suggesting ATN
-resolved
-possibly underlying kidney disease related to Sjogren's-
-cont eplerenone
#Anion gap metabolic acidosis
-can start bicarb ggt today
History of adrenal adenoma--Recent CT scan abdomen from August shows 2 small left adrenal nodules--would strongly consider eval for surgical removal
Sjogren's syndrome--Continue oxycodone--follow up with rheumatology
Essential hypertension--Holding losartan
Hypercholesterolemia-Continue statin
code status --Full code
DVT prophylaxis�heparin
Total time spent on today's encounter was 50 minutes which included time spent in counseling the patient/family regarding diagnosis and treatment plan as listed above, goals of care, and symptom management. Case was discussed with nursing staff,
specialists, and care coordinators/case management. All labs and imaging personally reviewed by me. Remainder the time spent in detailed review of previous records, lab data, imaging, and other medical provider documentation.
Anticipated Discharge: > 48 hours
Subjective/Interval History
-
Date of Service: October 08, 2023
no acute events
Objective Data
-
Labs:
Laboratory Results
10/08/23 10/08/23
07:44 20:34
WBC 4.9
Hgb 10.8 L
Hct 32.9 L
Plt Count 215
Sodium 140 Pending
Potassium 4.1 D Pending
Chloride 115 H Pending
Carbon Dioxide 18 L Pending
BUN 5 L Pending
Creatinine 1.0 Pending
Glucose 83 Pending
Calcium 8.8 Pending
Vital Signs:
Vital Signs
Temp Pulse Resp BP Pulse Ox
97.8 F 55 18 121/69 98
10/08/23 11:47 10/08/23 11:47 10/08/23 11:47 10/08/23 11:47 10/08/23 11:47
I&O
10/07/23 10/08/23 10/09/23
06:59 06:59 06:59
Intake Total 1320 / 1320 1680 / 1680
Balance 1320 / 1320 1680 / 1680
Review of Systems
-
History Source: Patient
All other systems: Reviewed and negative
Physical Exam
-
General: Well Developed, Well Nourished and No Apparent Distress
HEENT: Normocephalic and Atraumatic
Respiratory: Clear to Auscultation; Negative Wheezes or Rhonchi
Cardiac: Regular Rhythm and S1/S2; Negative Murmur
GI: Soft, Nontender, Nondistended and Normal Bowel Sounds
Musculoskeletal: No Clubbing, No Cyanosis and No Edema
Skin: Warm
Neuro: Awake
Data Reviewed
-
Labs: Labs Reviewed by me
[2023-10-08 17:23] VITALS: BP 125/79
[2023-10-08 19:45] VITALS: BP 131/76
[2023-10-08 20:54] LABS: Blood Urea Nitrogen 8 mg/dl (7-17); Calcium 8.5 mg/dl (8.4-10.2); Carbon Dioxide 21 mmol/L (22-30); Chloride 111 mmol/L (98-107); Estimated Creatinine Clearance 77 ml/min; Glucose 88 mg/dl (70-99); Potassium 3.1 mmol/L (3.5-5.1); Sodium 138 mmol/L (135-145); eGFR > 60.00
[2023-10-08] MEDS: KCL 270 MEQ IV (21:54)
[2023-10-08] MEDS: SODIUM BICARBONATE IV (21:54)
[2023-10-08 23:23] VITALS: BP 109/63
[2023-10-09] MEDS: MOTRIN 400 MG PO (02:43)
[2023-10-09 03:20] VITALS: BP 137/81
[2023-10-09 07:14] VITALS: BP 129/78
[2023-10-09 08:13] LABS: Hematocrit 31.2 % (37.0-47.0); Hemoglobin 10.6 g/dL (12.0-16.0); Mean Corpuscular Volume 85.5 fL (81.0-99.0); Mean Platelet Volume 10.7 fL (7.4-10.4); Platelet Count 217 10^3/uL (130-400); Red Blood Cell Count 3.65 10^6/uL (4.20-5.40); Red Cell Dist. Width 15.3 % (11.5-14.5); White Blood Cell Count 4.5 10^3/uL (4.8-10.8)
[2023-10-09] MEDS: INSPRA 100 MG PO ×2 (08:19→20:20)
[2023-10-09] MEDS: KCL ELIXIR 40 MEQ PO ×2 (08:19→20:22)
[2023-10-09] MEDS: LIPITOR 10 MG PO (08:20)
[2023-10-09] MEDS: COZAAR 100 MG PO (08:20)
[2023-10-09 08:57] LABS: Blood Urea Nitrogen 6 mg/dl (7-17); Calcium 8.6 mg/dl (8.4-10.2); Carbon Dioxide 19 mmol/L (22-30); Chloride 115 mmol/L (98-107); Estimated Creatinine Clearance 70 ml/min; Glucose 82 mg/dl (70-99); Potassium 3.7 mmol/L (3.5-5.1); Sodium 139 mmol/L (135-145); eGFR > 60.00
[2023-10-09] MEDS: SODIUM BICARBONATE 1150 MEQ IV (09:08)
[2023-10-09 11:47] VITALS: BP 130/74
--- NOTE | 2023-10-09 13:00 | W.PN.NEPH.PH ---
Today's Communication / Plan
-
- bicarb and K
Assessment/Plan
-
Assessment:
Sjogrens/lupus overlap
TREASURE (bl Cr 1, up to 1.5 as outpatient)
hypokalemia
adrenal adenoma
HTN
DLD
Plan:
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
- this could also explain her bilateral renal stones as well
- K dropped last night, stopped naHCO3 gtt. given K this AM and restarted gtt. plan for repeat labs this evening. I would like to initiate the patient on K citrate this evening pending labs.
- mild TREASURE-cr better at 1. suspect prerenal as the cause(especially in the setting of underlying lupus) and urine is also bland (no proteinuria or hematuria)
Adrenal adenoma
- regarding her adrenal adenoma, she has been confirmed to have primary cherry. on stable treatment(Eplerenone 100BID) for many years and doing well with it.
- Lately her dose was reduced for different reason which likely exaggerated her hypokalemia too
- cont 100mg BID and resume Losartan too
- total potassium try to give 80 meQ today
- adrenal adenoma w/u as out pt
gout/pseudogout defer to primary team/rheumatology
d/w primary
d/w pt in detail
Once her acute issues resolve, she is planned for follow up with Dr. Salas on 10/13. likely for d/c tomorrow if numbers moving in the right direction. Should get labs prior to next appt
-
-
Date of Service: October 09, 2023
CC / HPI / ROS
-
Chief Complaint:
hypokalemia, met acidosis
History of Present Illness:
cr stable at 1.1, K 3.7
bicarb low 19. bp stable
Review of Systems:
improving weakness of legs,
no n/v
no cp or sob
Labs
-
Labs:
WBC 4.5 10^3/uL (4.8-10.8) L 10/09/23 07:37
RBC 3.65 10^6/uL (4.20-5.40) L 10/09/23 07:37
Hgb 10.6 g/dL (12.0-16.0) L 10/09/23 07:37
Hct 31.2 % (37.0-47.0) L 10/09/23 07:37
Plt Count 217 10^3/uL (130-400) 10/09/23 07:37
eGFR > 60.00 10/09/23 07:37
Albumin 3.8 g/dl (3.5-5.0) 10/04/23 07:03
Physical Exam
-
Vital Signs:
Vital Signs
Temp Pulse Resp BP Pulse Ox
98.1 F 51 16 130/74 99
10/09/23 11:47 10/09/23 11:47 10/09/23 11:47 10/09/23 11:47 10/09/23 11:47
Cardiovascular:: Regular rate and rhythm
Respiratory:: Bilateral: CTA
Lung Excursion:: Normal
Abdomen:: Nontender and Soft
Bowel Sounds:: Normal
Extremity Edema:: +1: Bilateral:
Hoover Catheter: No
--- NOTE | 2023-10-09 13:02 | W.PN.HOSP.TC ---
Today's Communication/Plan
-
k repletion most likely with k citrate
bicarb
monitor hr - for possible cards eval; followed outpatient
Assessment / Plan
Assessment / Plan
pt is a 53 year old female
Severe hypokalemia
- h/o of hyperaldosteronism (started on eplerenone 15 years ago)/RTA likely from Sjogren's and periodic paralysis of hypokalemia
-has also been on steroids intermittently: cosyntropin STIM test WNL
-K repletion - after speaking to nephro - potassium citrate might be better choice to combat acidosis
-TSH with reflex WNL
-Can check EMG outpatient--consideration for myasthenia w/u as well
-magnesium WNL--apprec renal--cont K repletion
-Restart losartan
-Eplerenone 100mg BID
Acute kidney injury
-unclear etiology--Low BUN suggesting ATN
-resolved
-possibly underlying kidney disease related to Sjogren's-
-cont eplerenone
#Anion gap metabolic acidosis
- bicarb ggt
-anticipate transitioning to bicarb tablets soon
#Bradycardia
-follows cards outpatient for Sjogren's
-Can consult cards tomorrow if HR continues to dip
History of adrenal adenoma--Recent CT scan abdomen from August shows 2 small left adrenal nodules--would strongly consider eval for surgical removal
Sjogren's syndrome--Continue oxycodone--follow up with rheumatology
Essential hypertension--Holding losartan
Hypercholesterolemia-Continue statin
code status --Full code
DVT prophylaxis�heparin
Anticipated Discharge: 24 - 48 hours
Subjective/Interval History
-
Date of Service: October 09, 2023
no acute events
Objective Data
-
Labs:
Laboratory Results
10/09/23 10/09/23
07:37 14:00
WBC 4.5 L
Hgb 10.6 L
Hct 31.2 L
Plt Count 217
Sodium 139 Pending
Potassium 3.7 Pending
Chloride 115 H Pending
Carbon Dioxide 19 L Pending
BUN 6 L Pending
Creatinine 1.1 H Pending
Glucose 82 Pending
Calcium 8.6 Pending
Vital Signs:
Vital Signs
Temp Pulse Resp BP Pulse Ox
98.1 F 51 16 130/74 99
10/09/23 11:47 10/09/23 11:47 10/09/23 11:47 10/09/23 11:47 10/09/23 11:47
I&O
10/08/23 10/09/23 10/10/23
06:59 06:59 06:59
Intake Total 1680 / 1680 2990 / 2990
Balance 1680 / 1680 2990 / 2990
Review of Systems
-
History Source: Patient
All other systems: Reviewed and negative
Physical Exam
-
General: Well Developed, Well Nourished and No Apparent Distress
HEENT: Normocephalic and Atraumatic
Respiratory: Clear to Auscultation; Negative Wheezes or Rhonchi
Cardiac: Regular Rhythm and S1/S2; Negative Murmur
GI: Soft, Nontender, Nondistended and Normal Bowel Sounds
Musculoskeletal: No Clubbing, No Cyanosis and No Edema
Skin: Warm
Neuro: Awake
Data Reviewed
-
Labs: Labs Reviewed by me
[2023-10-09 15:17] LABS: Blood Urea Nitrogen 6 mg/dl (7-17); Calcium 8.4 mg/dl (8.4-10.2); Carbon Dioxide 21 mmol/L (22-30); Chloride 111 mmol/L (98-107); Estimated Creatinine Clearance 77 ml/min; Glucose 91 mg/dl (70-99); Potassium 3.5 mmol/L (3.5-5.1); Sodium 138 mmol/L (135-145); eGFR > 60.00
[2023-10-09 19:33] VITALS: BP 136/67
[2023-10-09 23:32] VITALS: BP 143/71
[2023-10-10] MEDS: ULTRAM 25 MG PO (03:07)
--- NOTE | 2023-10-10 03:16 | PTCARENOTE ---
Pt complaining of headache. PRN medication administered as ordered. Will continue to monitor.
[2023-10-10 03:20] VITALS: BP 135/80
[2023-10-10 07:20] LABS: Hematocrit 34.7 % (37.0-47.0); Hemoglobin 11.5 g/dL (12.0-16.0); Mean Corp Hgb Conc. 33.1 g/dL (33.0-37.0); Mean Corpuscular Hgb 29.2 pg (27.0-31.0); Mean Corpuscular Volume 88.1 fL (81.0-99.0); Mean Platelet Volume 10.4 fL (7.4-10.4); Platelet Count 222 10^3/uL (130-400); Red Blood Cell Count 3.94 10^6/uL (4.20-5.40); Red Cell Dist. Width 14.9 % (11.5-14.5); White Blood Cell Count 4.1 10^3/uL (4.8-10.8)
[2023-10-10 07:55] VITALS: BP 140/70
[2023-10-10 07:59] LABS: Blood Urea Nitrogen 6 mg/dl (7-17); Calcium 8.5 mg/dl (8.4-10.2); Carbon Dioxide 19 mmol/L (22-30); Chloride 113 mmol/L (98-107); Estimated Creatinine Clearance 77 ml/min; Glucose 82 mg/dl (70-99); Potassium 3.5 mmol/L (3.5-5.1); Sodium 138 mmol/L (135-145); eGFR > 60.00
[2023-10-10] MEDS: LIPITOR 10 MG PO (08:49)
[2023-10-10] MEDS: INSPRA 100 MG PO (08:50)
[2023-10-10] MEDS: COZAAR 100 MG PO (08:55)
[2023-10-10] MEDS: KCL ELIXIR PO (08:55)
[2023-10-10] MEDS: KCL ELIXIR 40 MEQ PO (09:05)
[2023-10-10 11:46] VITALS: BP 135/71
[2023-10-10] MEDS: UROCIT-K 10 MEQ PO (12:30)
--- NOTE | 2023-10-10 13:04 | CM ---
Patient seen bedside.
Patient ambulating in halls.
Continue to monitor labs.
Plan: home no needs.
[2023-10-10 15:37] VITALS: BP 121/72
--- NOTE | 2023-10-10 15:41 | W.PN.NEPH.PH ---
Today's Communication / Plan
-
Discharge on potassium chloride and potassium citrate
Follow-up BMP in 48 hours
Follow-up with Dr. bernal this Tuesday
Assessment/Plan
-
Assessment:
Sjogrens/lupus overlap
TREASURE (bl Cr 1, up to 1.5 as outpatient)
hypokalemia
adrenal adenoma
HTN
DLD
Plan:
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
- this could also explain her bilateral renal stones as well
-Discharged on potassium citrate for hypokalemia and metabolic acidosis 10meq TID and 40meqKCL
- mild TREASURE-cr better at 1. suspect prerenal as the cause(especially in the setting of underlying lupus) and urine is also bland (no proteinuria or hematuria)
-follow up labs in 48hrs
Adrenal adenoma
- regarding her adrenal adenoma, she has been confirmed to have primary cherry. on stable treatment(Eplerenone 100BID) for many years and doing well with it.
- Lately her dose was reduced for different reason which likely exaggerated her hypokalemia too
- continue 100mg BID and resume Losartan too
- adrenal adenoma w/u as out pt
gout/pseudogout defer to primary team/rheumatology
d/w primary
d/w pt in detail
Once her acute issues resolve, she is planned for follow up with Dr. Bernal on 10/13. likely for d/c tomorrow if numbers moving in the right direction. Should get labs prior to next appt
-
-
Date of Service: October 10, 2023
CC / HPI / ROS
-
Chief Complaint:
hypokalemia, met acidosis
History of Present Illness:
cr stable at 1., K 3.5
bicarb low 19. bp stable
Review of Systems:
improving weakness of legs,
no n/v
no cp or sob
Labs
-
Labs:
WBC 4.1 10^3/uL (4.8-10.8) L 10/10/23 07:01
RBC 3.94 10^6/uL (4.20-5.40) L 10/10/23 07:01
Hgb 11.5 g/dL (12.0-16.0) L 10/10/23 07:01
Hct 34.7 % (37.0-47.0) L 10/10/23 07:01
Plt Count 222 10^3/uL (130-400) 10/10/23 07:01
Sodium 138 mmol/L (135-145) 10/10/23 07:01
Potassium 3.5 mmol/L (3.5-5.1) 10/10/23 07:01
Chloride 113 mmol/L (98-107) H 10/10/23 07:01
Carbon Dioxide 19 mmol/L (22-30) L 10/10/23 07:01
BUN 6 mg/dl (7-17) L 10/10/23 07:01
Creatinine 1.0 mg/dL (0.6-1.0) 10/10/23 07:01
eGFR > 60.00 10/10/23 07:01
Glucose 82 mg/dl (70-99) 10/10/23 07:01
Calcium 8.5 mg/dl (8.4-10.2) 10/10/23 07:01
Albumin 3.8 g/dl (3.5-5.0) 10/04/23 07:03
Physical Exam
-
Vital Signs:
Vital Signs
Temp Pulse Resp BP Pulse Ox
98.3 F 56 16 121/72 97
10/10/23 15:37 10/10/23 15:37 10/10/23 15:37 10/10/23 15:37 10/10/23 15:37
Cardiovascular:: Regular rate and rhythm
Respiratory:: Bilateral: CTA
Lung Excursion:: Normal
Abdomen:: Nontender and Soft
Bowel Sounds:: Normal
Extremity Edema:: None: Bilateral:
Hoover Catheter: No
--- NOTE | 2023-10-10 15:52 | PTOTSP ---
pt reports no difficulty with simple ADLs, functional transfers, ambulation. pt reports pain in L upper leg has subsided and numbess and tingling in hands has not been an issue. no further acute OT needs identified, will sign off.
--- NOTE | 2023-10-10 16:02 | PTCARENOTE ---
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 Instructions started and patient states that she can only take potassium liquid. Also Dr. Lambert reminded to transmit scripts for new medications.
--- NOTE | 2023-10-10 16:47 | W.PN.HOSP.TC ---
Addendum entered and electronically signed by Sarmad Lambert MD 10/12/23 14:10:
Addendum placed post discharge in response to CDI query
TREASURE only and no ATN
Original Note:
Today's Communication/Plan
-
d/c home
Assessment / Plan
Assessment / Plan
Severe hypokalemia
History of hyperaldosteronism
Adrenal adenoma
-has also been on steroids intermittently: cosyntropin STIM test WNL
-TSH with reflex WNL
-Eplerenone dose increased to 100 mg twice daily
-Maintained on losartan
-Continue on potassium replacement
Presumed type II RTA from Sjogren's syndrome
-Started on potassium citrate to help with acidosis
-Follow-up BMP in 48 hours
Acute kidney injury - resolved
Bradycardia
-asymptomatic,
-not on BB
-Some studies suggestive that sjogren could give mild autonomic dysfunction.
Sjogren's syndrome
-follow up with rheumatology
Essential hypertension
Hypercholesterolemia
code status --Full code
DVT prophylaxis�heparin
More than 30 minutes spent in discharge including
Final examination of the patient
Summarizing hospital stay
Instructions for continuing care to all relevant caregivers
Preparation of discharge records, prescriptions, and referral forms
Total time spent (in minutes): 38 mins
Anticipated Discharge: Today
Subjective/Interval History
-
Date of Service: October 10, 2023
Denies of having any active issues
Objective Data
-
Labs:
Laboratory Results
10/10/23
07:01
WBC 4.1 L
Hgb 11.5 L
Hct 34.7 L
Plt Count 222
Sodium 138
Potassium 3.5
Chloride 113 H
Carbon Dioxide 19 L
BUN 6 L
Creatinine 1.0
Glucose 82
Calcium 8.5
Vital Signs:
Vital Signs
Temp Pulse Resp BP Pulse Ox
98.3 F 56 16 121/72 97
10/10/23 15:37 10/10/23 15:37 10/10/23 15:37 10/10/23 15:37 10/10/23 15:37
I&O
10/09/23 10/10/23 10/11/23
06:59 06:59 06:59
Intake Total 2990 / 2990 3440 / 3440
Balance 2990 / 2990 3440 / 3440
Review of Systems
-
Respiratory: Reports No Symptoms
Cardiac: Reports No Symptoms
Abdomen/GI: Reports No Symptoms
Physical Exam
-
General: No Apparent Distress and Cachectic
Neuro: Awake and Alert
--- NOTE | 2023-10-11 07:53 | PN.CDI ---
CDI
- -
CDI:
Physician Documentation Request
Admit Date: 10/03/23 21:01
Dear Doctor Fausto,
Clinical Indicators:
Patient admitted with severe hypokalemia; PMH includes adrenal adenoma.
10/03 Renal Consult, '(bl Cr 1, up to 1.5 as outpatient)'
10/07 PN, 'possibly underlying kidney disease related to Sjogren's-'
10/08 PN, 'Acute kidney injury-unclear etiology--Low BUN suggesting ATN'
BUN/Cr/GFR trend:
10/03/23 10/05/23 10/06/23
18:00 08:24 08:09
BUN 9 5 L 6 L
Creatinine 1.4 H 1.2 H 1.2 H
eGFR 44.99 54.13 54.13
10/07/23 10/08/23 10/09/23
07:35 07:44 07:37
BUN 5 L 5 L 6 L
Creatinine 1.1 H 1.0 1.1 H
eGFR > 60.00 > 60.00 > 60.00
10/09/23 10/10/23
14:47 07:01
BUN 6 L 6 L
Creatinine 1.0 1.0
eGFR > 60.00 > 60.00
Please clarify which of the following accurately represents the patient's renal status:
TREASURE with suspected ATN
TREASURE only
CKD with rise in creatinine only (specify stage)
Rise in creatinine only
Other, please specify
Criteria for TREASURE*
1 Increase in serum creatinine by > or = to 0.3 mg/dL (> or = to 26.5 micromol/L) within 48 hours, OR
2 Increase in serum creatinine to > or = to 1.5 times baseline, which is known or presumed to have occurred within 7 days, OR
3 Urine volume < 0.5 nL/kg/hour for six hours
Stages of Chronic Kidney Disease*
Level Description GFR
G1 Normal or High >90
G2 Mildly decreased 60-89
G3a Mildly to moderately decreased 45-59
G3b Moderately to severely decreased 30-44
G4 Severely decreased 15-29
G5 Kidney failure <15
Use of terms such as suspected, likely, concern for, or probable (associated with a specific diagnosis that is being evaluated, monitored, or treated as if it exists) are acceptable and can be coded in the inpatient setting, when documented at the
time of discharge.
Thank you,
REGGIE Sky RN
CDI Specialist
available via tiger text
Please use your independent medical judgment in providing your response.
*Source: Kidney Disease: Improving Global Outcomes (KDIGO) 2012
--- NOTE | 2023-10-12 07:35 | W.DCSUMMARY ---
Discharge Summary
Discharge Data
Date of Admission: 10/03/23
Date of Discharge: 10/10/23
-
Pending Results: No
Hospital Course
Discharging Physician : Dr Sarmad Lambert
Disposition : To home
Primary care physician : Dr. Bethany Arias
Principal Discharge diagnosis :
Type II renal tubular acidosis
Severe hypokalemia
Non-anion gap metabolic acidosis
Acute kidney injury
Bradycardia
Chronic Discharge diagnosis :
History of Sjogren's syndrome
Suspected systemic lupus erythematous overlap with Sjogren's
History of adrenal adenoma
Essential hypertension
Hyperlipidemia
Hospital Course :
Patient is a 53-year-old female with above-mentioned past medical history presented to ER with new onset of generalized weakness, body aches. Of note patient has history of adrenal adenoma diagnosed 15 years ago and has been on a proton therapy,
patient dose of eplerenone has not been increased lately and blood pressure has remained controlled. Recently on repeat CT scan earlier this year have shown patient having a second adenoma. In ER laboratory worsening showing patient having
hyperkalemia/acidosis and mild renal failure. Nephrology was involved in care and based on lab evaluation there was concern of patient having possibly type II RTA from underlying Sjogren's syndrome. Patient was started on potassium replacement.
Patient had a cosyntropin stimulation test and TSH/free T4 were normal. After improvement in blood potassium level patient was started on IV bicarb drip for correction of acidosis. Post resolution of acidosis patient was transition to potassium
citrate at discharge. Patient provided prescription for follow-up BMP within 48 hours and patient to follow-up later in the week with nephrology in office.
Important imaging findings :
None
Procedure findings :
None
Discharge Plan
-
Patient Disposition: Home (Routine Discharge)
Discharge Diagnosis/Procedures: Renal tubular acidosis and sjogren syndrome
Condition: Fair
Diet: Regular
Activity: As tolerated
Driving Restrictions: No driving
Bathing Restrictions: OK to Shower
Blood Work: BMP in 2 days
Referrals:
Bethany Arias DO [Family Provider] - in one week
Abi Salas MD [Active] - 10/14/23
Prescriptions:
New
eplerenone 50 mg tablet
100 mg PO BID 30 Days Qty: 120 2RF
potassium citrate 10 mEq (1,080 mg) tablet extended release
10 meq PO TID Qty: 90 0RF
potassium chloride 20 mEq/15 mL liquid
40 meq PO DAILY Qty: 1200 1RF
Continued
tizanidine 2 mg Tablet
2 mg PO TID PRN (Reason: muscle spasms)
polyethylene glycol 3350 [Miralax] 17 gram Powder In Packet
17 g PO DAILY PRN (Reason: constipation)
atorvastatin 10 mg Tablet
10 mg PO DAILY
betamethasone dipropionate 0.05 % Cream
1 applic TOPICAL HS
losartan 100 mg Tablet
100 mg PO DAILY
calcipotriene 0.005 % Ointment
1 applic TOPICAL HS
Systane (PF) 0.4-0.3 % Dropperette
1 drp BOTH EYES DAILYPRN PRN (Reason: dry eyes)
fluoride (sodium) [Sodium Fluoride 5000 Dry Mouth] 1.1 % Paste
1 applic DENTAL BID
Discontinued
eplerenone 50 mg Tablet
50 mg PO BID
Discharge Orders:
Discharge Patient (As Directed); Ordered 10/10/23
Ordered By: Sarmad Lambert
Discharge Date and Time
Discharge Date/Time: 10/10/23 16:15
Print Language: GRENADIAN
== END 2023-10-10 16:15 | disposition home or self-care (01) | DRG 699 ==
LOC: 4 WEST ACU 21:01
PROVIDERS: Emergency Medicine; Internal Medicine; Physical Medicine & Rehabilitation; ADMITTING PHYSICIAN Hospitalist; ATTENDING PHYSICIAN Hospitalist; CONSULT PHYSICIAN Student in an Organized Health Care Education/Training Program; EMERGENCY PHYSICIAN Emergency Medicine; FAMILY PHYSICIAN Family Medicine
PROC: 4A0FX3Z Measurement of Musculoskeletal Contractility, External Approach (ICD-10-PCS; 2023-10-08)
PROC: 4A0 Measurement and Monitoring, Physiological Systems, Measurement (ICD-10-PCS; 2023-10-08)
DX: N25.89 Other disorders resulting from impaired renal tubular function (principal); E87.20 Acidosis, unspecified; N17.9 Acute kidney failure, unspecified; E87.6 Hypokalemia; M35.00 Sjogren syndrome, unspecified; E26.9 Hyperaldosteronism, unspecified; I10 Essential (primary) hypertension; M32.9 Systemic lupus erythematosus, unspecified
CPT/HCPCS: 80048; 80053; 81003; 81015; 82533; 82550; 82570; 83735; 84132; 84133; 84443; 85025; 85027; 93005; 95886; 95909; 96374; 97162; 97166; 99285

== ENCOUNTER → 2023-10-16 06:41 | Outpatient (REF) | payer OTHER, SELFPAY | LOC: MRI 06:41 | PROVIDERS: ATTENDING PHYSICIAN Student in an Organized Health Care Education/Training Program; FAMILY PHYSICIAN Physician Assistant Medical | DX: M51.36 Other intervertebral disc degeneration, lumbar region (principal); M54.50 Low back pain, unspecified; Z98.890 Other specified postprocedural states | CPT/HCPCS: 72148 ==

== ENCOUNTER → 2023-12-07 08:34 | Outpatient (REF) | payer OTHER, SELFPAY | LOC: WDC 08:34 | PROVIDERS: ATTENDING PHYSICIAN Obstetrics & Gynecology; FAMILY PHYSICIAN Family Medicine | DX: Z12.31 Encounter for screening mammogram for malignant neoplasm of breast (principal) | CPT/HCPCS: 77063; 77067 ==

== ENCOUNTER → 2023-12-14 16:02 | Outpatient (REF) | payer OTHER, SELFPAY | LOC: RAD 16:02 | PROVIDERS: ATTENDING PHYSICIAN Urology; FAMILY PHYSICIAN Family Medicine | DX: N20.0 Calculus of kidney (principal); R31.29 Other microscopic hematuria; N30.10 Interstitial cystitis (chronic) without hematuria | CPT/HCPCS: 76770; 76856 ==

== ENCOUNTER → 2024-01-27 14:54 | Outpatient (REF) | payer OTHER, SELFPAY | LOC: MRI 3T 14:54 | PROVIDERS: ATTENDING PHYSICIAN Obstetrics & Gynecology; FAMILY PHYSICIAN Family Medicine | DX: R93.9 Diagnostic imaging inconclusive due to excess body fat of patient (principal) | CPT/HCPCS: 72197; A9575 ==

== ENCOUNTER → 2024-05-14 11:21 | Outpatient (REF) | payer OTHER, SELFPAY | LOC: RAD 11:21 | PROVIDERS: ATTENDING PHYSICIAN Podiatrist Primary Podiatric Medicine; FAMILY PHYSICIAN Family Medicine; REFERRING PHYSICIAN Internal Medicine Rheumatology | DX: M72.2 Plantar fascial fibromatosis (principal); M79.671 Pain in right foot; M79.672 Pain in left foot | CPT/HCPCS: 73630 ==

== ENCOUNTER 2024-12-03 11:40 | Observation (INO) | payer OTHER, SELFPAY ==
[2024-12-03] VITALS (11 sets, daily range): BP systolic 123–148; BP diastolic 66–95; PULSE 73–88; O2SAT 98; BMI 29.4; BMI 28.8
--- NOTE | 2024-12-03 04:56 | ED.GENMED ---
History of Present Illness
<Nelly Aparicio PA-C - Last Filed: 12/03/24 22:57>
General
Chief Complaint: Dizziness
Source: patient
Exam Limitations: none
Time Seen by Provider: 12/03/24 04:55
Nursing documentation reviewed up to this point in time: agreed with
History of Present Illness
History of Present Illness:
54 y/o female with pmh of sjogren's syndrome, hlp, htn, type II renal tubular acidosis, presents with dizziness and a sensation of the world tilting sideways, which she first experienced either Tuesday or Tuesday morning last week while sitting in
a chair. The episode lasted approximately three seconds. She felt well for a few days but than this morning, upon waking from sleep, she again felt dizzy and not right, even while still lying flat in bed. The dizziness worsens with position changes,
particularly when she is lying flat and looking down at her feet. The patient describes feeling 'lightheaded and spacey' and experiences a fear of passing out. She has no history of headaches or trauma to the head. Her symptoms include a chronic
headache for the past few weeks, which she attributes to Sj�grens syndrome. The patient denies vomiting, chest pain, shortness of breath, auditory changes, swallowing difficulties, speech difficulties, double vision, blurry vision, and walking
difficulties other than feeling lightheaded. There have been no fevers, nor any recent trauma to the head or neck. In March, she had her thyroid function checked, revealing an abnormal TSH but normal free T4 levels. She reports having high blood
pressure, high cholesterol, and a history of kidney problems, specifically renal tubular acidosis, which led to hospitalization the previous year. Her blood pressure was elevated on arrival, which she attributes to nervousness, she does take
losartan for her blood pressure. Patient has associated nausea but no vomiting and is declining medication for nausea at this time. She denies abdominal pain, diarrhea.
Past History
<Nelly Aparicio PA-C - Last Filed: 12/03/24 22:57>
Past History
ED Past Medical History: HTN, Hypercholesterolemia and Other (Sjogren syndrome); Negative IDDM or NIDDM
ED Past Surgical History: Gynecological; Negative Appendectomy, Bowel resection, Cardiac or Cholecystectomy
Social History
Tobacco: Non-smoker
Alcohol: None
Drug: None
Personal:
Living: with family
Employment: Employed
Family History
Family History: Other (Sister with gallbladder disease); Negative Early CAD or CAD
Review of Systems
<Nelly Aparicio PA-C - Last Filed: 12/03/24 22:57>
Review of Systems
All Other Systems: ROS reviewed and negative except as documented in HPI and ROS
Phy Exam
<Nelly Aparicio PA-C - Last Filed: 12/03/24 22:57>
Physical Exam
Physical Exam:
General: Patient is well appearing and in no acute distress; non-toxic
Skin: Warm and dry, no rashes or lesions
Head: Normocephalic, atraumatic
Eyes: Sclera non-icteric. EOMs intact. No nystagmus.
Cardiac: Regular rate and rhythm, no murmurs
Pulm: Normal respiratory effort, no wheezes, rales, or rhonchi
Neuro: CN II-XII intact, no focal neurologic deficits. No dysmetria. Normal gait.
Psychiatric: Appropriate mood and affect.
Course
<Nelly Aparicio PA-C - Last Filed: 12/03/24 22:57>
Orders/Labs/Results
Orders:
Orders
12/03/24 04:57
EKG [Electrocardiogram (*1)] Urgent
Reason for Study: Vertigo / Dizzy
EKG- Treatment ONCE
12/03/24 05:13
CT Head W/o Iv Contrast Urgent
Comment:
Reason For Exam: dizziness
IV Insert/Care/Rem.- Treatment PRN
Orthostatic VS- Treatment ONCE
Meclizine [Antivert] 25 mg PO NOW STA
12/03/24 05:24
CMP [Comprehensive Metabolic Panel] Urgent
Complete Blood Count/With Diff Urgent
Free T4 Urgent
TSH Reflex To Free T4 Urgent
12/03/24 06:36
Pt Eval And Treat Urgent
Activity Level: Out of Bed-Early Mobility
12/03/24 09:43
MRI Brain [MR Brain Without Contrast] Urgent
Comment:
Reason For Exam: vertigo persistent
Recent pill cam endoscopy?: No
12/03/24 Lunch
Clear Liquid
At Your Request: Full Participation
12/03/24 10:49
diazePAM [Valium Injection] 5 mg IV NOW STA
12/03/24 10:51
NEUROLOGY CONSULT Routine
Consulting Provider: Giles Gandara
Was physician already notified: Yes
12/03/24 10:53
Ondansetron Injectable [Zofran] 4 mg IV Q6HPRN PRN
12/03/24 10:54
Admit/Transfer Patient As Directed
Co-Sign Provider:
Level of Care: Observation services
Assign to:: Telemetry
Physician / Group: joey bennett
Diagnosis: dizziness/vertigo
Reason for Telemetry: Medication for Arrhythmia
Date to Stop Telemetry: 12/05/24
Time to Stop Telemetry: 11:00
PRN Pain Medication Management As Directed
May give lesser potent ordered pain med per pt: Yes
preference::
Protocol:: Medication orders for pain may be administered in a
manner that supports deferring to patient preference
when the pt is:
- Requesting an ordered lesser potent pain medication.
Least to most potent pain medications are defined
as: acetaminophen < NSAID < tramadol < opioids
(morphine, oxycodone, hydromorphone).
- Requesting a lesser dose of the same medication IF
ORDERED.
- Requesting a less intrusive route of administration
if both routes are prescribed by the provider (PO <
IV).
12/03/24 10:56
Code Status As Directed
Resuscitation Status: Full Code
12/03/24 13:02
Acetaminophen [Tylenol] 650 mg PO Q4HPRN PRN
Docusate W/Senna [Senokot-S] 1 tablet PO BIDPRN PRN
Hydroxychloroquine [Plaquenil] 200 mg PO BID
Losartan [Cozaar] 100 mg PO DAILY
12/03/24 13:02
Activity As Directed
Activity Level: Ambulate
Pneumatic Compression Sleeves As Directed
Type: Knee high
Vital Signs As Directed
Frequency: Per unit guidelines
DX Deep Vein Thrombosis Video Routine
12/03/24 13:19
Artificial Tears (Pf) [Refresh Eye Drops (Pf)] 1 drops BOTH EYES DAILYPRN PRN
12/03/24 16:00
Eplerenone [Inspra] 50 mg PO BID@0800,1600
12/04/24 08:00
Atorvastatin [Lipitor] 10 mg PO DAILY
12/05/24 11:00
DC Protocol for Telemetry ONCE
Abnormal Lab Results
12/03/24
05:24
WBC 4.3 L 10^3/uL
(4.8-10.8)
Monocytes % 9.4 H %
(1.7-9.3)
Chloride 109 H mmol/L
(98-107)
BUN 18 H mg/dl
(7-17)
Glucose 117 H mg/dl
(70-99)
TSH (Reflex) 5.94 H uIU/ml
(0.47-4.68)
12/03/24 05:24
12/03/24 05:24
Vital Signs
Initial and Last Documented VS:
Initial Vital Signs
Temp Pulse Resp BP Pulse Ox
98.5 F 100 24 148/88 100
12/03/24 04:50 12/03/24 04:50 12/03/24 04:50 12/03/24 04:50 12/03/24 04:50
Last Documented Vital Signs
Temp Pulse Resp BP Pulse Ox
97.6 F 81 16 123/80 97
12/03/24 19:44 12/03/24 19:44 12/03/24 19:44 12/03/24 19:44 12/03/24 21:15
<Tigre Mercado Jr., PA-C - Last Filed: 12/03/24 09:57>
Orders/Labs/Results
Orders:
Orders
12/03/24 04:57
EKG [Electrocardiogram (*1)] Urgent
Reason for Study: Vertigo / Dizzy
EKG- Treatment ONCE
12/03/24 05:13
CT Head W/o Iv Contrast Urgent
Comment:
Reason For Exam: dizziness
IV Insert/Care/Rem.- Treatment PRN
Orthostatic VS- Treatment ONCE
Meclizine [Antivert] 25 mg PO NOW STA
12/03/24 05:24
CMP [Comprehensive Metabolic Panel] Urgent
Complete Blood Count/With Diff Urgent
Free T4 Urgent
TSH Reflex To Free T4 Urgent
12/03/24 06:36
Pt Eval And Treat Urgent
Activity Level: Out of Bed-Early Mobility
12/03/24 09:43
MRI Brain [MR Brain Without Contrast] Urgent
Comment:
Reason For Exam: vertigo persistent
Recent pill cam endoscopy?: No
12/03/24 Lunch
Clear Liquid
At Your Request: Full Participation
12/03/24 10:49
diazePAM [Valium Injection] 5 mg IV NOW STA
12/03/24 10:51
NEUROLOGY CONSULT Routine
Consulting Provider: Giles Gandara
Was physician already notified: Yes
12/03/24 10:53
Ondansetron Injectable [Zofran] 4 mg IV Q6HPRN PRN
12/03/24 10:54
Admit/Transfer Patient As Directed
Co-Sign Provider:
Level of Care: Observation services
Assign to:: Telemetry
Physician / Group: joey bennett
Diagnosis: dizziness/vertigo
Reason for Telemetry: Medication for Arrhythmia
Date to Stop Telemetry: 12/05/24
Time to Stop Telemetry: 11:00
PRN Pain Medication Management As Directed
May give lesser potent ordered pain med per pt: Yes
preference::
Protocol:: Medication orders for pain may be administered in a
manner that supports deferring to patient preference
when the pt is:
- Requesting an ordered lesser potent pain medication.
Least to most potent pain medications are defined
as: acetaminophen < NSAID < tramadol < opioids
(morphine, oxycodone, hydromorphone).
- Requesting a lesser dose of the same medication IF
ORDERED.
- Requesting a less intrusive route of administration
if both routes are prescribed by the provider (PO <
IV).
12/03/24 10:56
Code Status As Directed
Resuscitation Status: Full Code
12/03/24 13:02
Acetaminophen [Tylenol] 650 mg PO Q4HPRN PRN
Docusate W/Senna [Senokot-S] 1 tablet PO BIDPRN PRN
Hydroxychloroquine [Plaquenil] 200 mg PO BID
Losartan [Cozaar] 100 mg PO DAILY
12/03/24 13:02
Activity As Directed
Activity Level: Ambulate
Pneumatic Compression Sleeves As Directed
Type: Knee high
Vital Signs As Directed
Frequency: Per unit guidelines
DX Deep Vein Thrombosis Video Routine
12/03/24 13:19
Artificial Tears (Pf) [Refresh Eye Drops (Pf)] 1 drops BOTH EYES DAILYPRN PRN
12/03/24 16:00
Eplerenone [Inspra] 50 mg PO BID@0800,1600
12/04/24 08:00
Atorvastatin [Lipitor] 10 mg PO DAILY
12/05/24 11:00
DC Protocol for Telemetry ONCE
Abnormal Lab Results
12/03/24
05:24
WBC 4.3 L 10^3/uL
(4.8-10.8)
Monocytes % 9.4 H %
(1.7-9.3)
Chloride 109 H mmol/L
(98-107)
BUN 18 H mg/dl
(7-17)
Glucose 117 H mg/dl
(70-99)
TSH (Reflex) 5.94 H uIU/ml
(0.47-4.68)
12/03/24 05:24
12/03/24 05:24
Vital Signs
Initial and Last Documented VS:
Initial Vital Signs
Temp Pulse Resp BP Pulse Ox
98.5 F 100 24 148/88 100
12/03/24 04:50 12/03/24 04:50 12/03/24 04:50 12/03/24 04:50 12/03/24 04:50
Last Documented Vital Signs
Temp Pulse Resp BP Pulse Ox
97.6 F 81 16 123/80 97
12/03/24 19:44 12/03/24 19:44 12/03/24 19:44 12/03/24 19:44 12/03/24 21:15
Adilt;Nelly Aparicio PA-C - Last Filed: 12/03/24 22:57>
MDM/Problems Addressed
Differential Diagnosis Includes:
The Differential Diagnosis includes, in no particular order and is not limited to:
- Benign Paroxysmal Positional Vertigo (BPPV)
- Vestibular Neuritis
- Menieres Disease
- Orthostatic Hypotension
- Anemia
- Thyroid Dysfunction
- Cardiovascular Abnormalities
- Medication side effects
- Central vertigo
- Labyrinthitis
MDM/Problems Addressed:
54 y/o female with pmh of sjogren's syndrome, hlp, htn, type II renal tubular acidosis, presents with dizziness. History as above.
Plan:
- Blood work to include a complete metabolic panel, complete blood cell count, and thyroid function tests.
- Electrocardiogram to evaluate for cardiac dysrhythmia
- Potential trial of Meclizine to assess response
- Orthostatic vitals
- CT scan of the head

CBC and CMP unremarkable. ECG shows no abnormal rhythms, ischemic changes. CT head normal. On reassessment, patient notes no improvement in her symptoms with meclizine. Patient notes that when she lied flat for CT scan, her symptoms became worse.
Did offer additional treatment such as valium however patient is concerned about possible medication interactions. Will order PT evaluation. Case signed out to Ed Rogelio POSADA at 7:00 am pending PT eval.
Chronic conditions affecting care:
- Sj�grens syndrome.
- Hypertension.
- Hyperlipidemia.
- Renal tubular acidosis
<Nelly Aparicio PA-C - Last Filed: 12/03/24 22:57>
*Pulse Oximetry
Patient hypoxic: no
*EKG
Interpreted by ED Provider?: Yes
EKG Intrepretation Date: 12/03/24
Interpretation: normal
Comparison EKG: changes noted (T wave inversion no longer evident)
Heart Rate: 83
Rate: normal
Rhythm: sinus
[place]: normal axis
*Critical Care Note
Total Time (30-74mins, 75-104mins- exclusive of procedures): Not Applicable
Data Reviewed
Review of Other/Old Records Reveals: Records (Reviewed discharge summary from 10/12/2023 patient seen for renal tubular acidosis thought to be secondary to Sjogren's syndrome)
<Tigre Mercado Jr., PA-C - Last Filed: 12/03/24 09:57>
Update Note
Update Note:
ES//patient reassessed claims that symptoms are worsening at this point PT assessed the patient and claims that it is unclear her etiology. Had some down beating nystagmus on the left side with goggles on. At this point considering persistent
symptoms inability to ambulate plan to admit for further assessment.
ED Attending Note
<Nelly Aparicio PA-C - Last Filed: 12/03/24 22:57>
-
Portions of this chart may have been created with voice recognition software.� Occasional wrong word or��sound alike� substitutions may have occurred due to the inherent limitations of voice recognition software.
Discharge Plan
Departure
Patient Disposition: Admit
Date of Disposition: 12/03/24
Time of Disposition: 09:57
Admit to: Telemetry
Admit to doctor: Jayleen
Presentation/result/management discussed w/ accepting MD/DO: Hospitalist
Patient with high blood pressure during this ER visit?: No
Condition: Fair
Covid-19: Not Applicable
Discharge Problem:
Vertigo
Interventions
Interventions:
*Risk Screen - Suicide Last Done: 12/03/24 04:50
*General Assessment Last Done: 12/03/24 05:08
*Neglect/Abuse Screening Last Done: 12/03/24 04:50
*ED- Fall Risk Assessment Last Done: 12/03/24 05:08
*ED COVID-19 Vaccine History Last Done: 12/03/24 05:05
*Nursing Disposition Last Done: 12/03/24 13:07
ED- Neurological Assessment Last Done: 12/03/24 05:30
ED- Cardiac Assessment Last Done: 12/03/24 05:30
ED Swallowing Screen Last Done: 12/03/24 05:30
Discharge Date and Time
Discharge Date/Time: 12/03/24 13:07
[2024-12-03] MEDS: ANTIVERT 25 MG PO (05:38)
[2024-12-03 05:55] LABS: % Basophils 0.5 % (0-2); % Eosinophils 3.9 % (0-6); % Immature Granulocytes 0.2 % (0-0.5); % Lymphocytes 35.7 % (20.5-51.1); % Monocytes 9.4 % (1.7-9.3); % Neutrophils 50.3 % (42.2-75.2); Absolute Eosinophils 0.2 10^3/uL (0-0.7); Absolute Lymphocytes 1.6 10^3/uL (1.2-3.4); Absolute Monocytes 0.4 10^3/uL (0.1-0.6); Absolute Neutrophils 2.2 10^3/uL (1.4-6.5); Hematocrit 41.5 % (37.0-47.0); Hemoglobin 14.3 g/dL (12.0-16.0); Mean Corp Hgb Conc. 34.5 g/dL (33.0-37.0); Mean Corpuscular Hgb 30.4 pg (27.0-31.0); Mean Corpuscular Volume 88.1 fL (81.0-99.0); Mean Platelet Volume 9.4 fL (7.4-10.4); Nucleated Red Blood Cells % 0 %; Platelet Count 208 10^3/uL (130-400); Red Blood Cell Count 4.71 10^6/uL (4.20-5.40); White Blood Cell Count 4.3 10^3/uL (4.8-10.8)
[2024-12-03 06:22] LABS: ALT (SGPT) 19 U/L (0-35); AST (SGOT) 22 U/L (14-36); Albumin 4.4 g/dl (3.5-5.0); Alkaline Phosphatase 72 U/L (38-126); Blood Urea Nitrogen 18 mg/dl (7-17); Calcium 9.4 mg/dl (8.4-10.2); Carbon Dioxide 23 mmol/L (22-30); Chloride 109 mmol/L (98-107); Estimated Creatinine Clearance 87 ml/min; Glucose 117 mg/dl (70-99); Potassium 3.7 mmol/L (3.5-5.1); Sodium 140 mmol/L (135-145); Total Bilirubin 0.3 mg/dl (0.2-1.3); Total Protein 7.3 g/dl (6.3-8.2); eGFR > 60.00
[2024-12-03 06:54] LABS: TSH Reflex To Free T4 5.94 uIU/ml (0.47-4.68)
[2024-12-03 07:23] LABS: Free T4 0.91 ng/dl (0.78-2.19)
--- NOTE | 2024-12-03 10:32 | HPS.HSE ---
Family Physician
-
Family Physician: Bethany Arias
Chief Complaint
-
Dizziness
History of Present Illness
54-year-old female with a past medical history of Sjogren syndrome, adrenal adenoma, hypertension, hyperlipidemia, and hypokalemia presents with acute onset of worsening dizziness and vertigo since this morning. Patient reports that she had a
transient episode of vertigo on Tuesday, that lasted for seconds, and resolved spontaneously. She reports that this morning, she felt lightheaded, dizzy, and off balance. Associated symptoms include nausea. She did vomit once. She reports
intermittent headaches this month, currently is headache free. She was seen by PT in the ER, and found to have a positive Froy-Hallpike on the right side. Jesika maneuver was attempted but patient became nauseous and was not able to tolerate. Brain
MRI is negative for acute intracranial abnormality. She reports continued dizziness currently. Meclizine did not help. She denies chest pain, denies photophobia. No fever, no dysuria.
Medical History
Past Medical History
Past Medical History: Reports Other (Sjogren syndrome, adrenal adenoma, hypertension, hypercholesteremia, hypokalemia)
Past Surgical History: Reports and Other
Additional Past Surgical History:
Hysterectomy
Cholecystectomy
Excision of skin cancer with skin grafting on face
Social History
Tobacco: Non-smoker
Alcohol: None
Drug: None
Family History
Family History: Not pertinent
Allergies / Home Medications
Allergies reflects when Allergies were last updated in [facility].
Home Medications with original date entered in [facility]
Allergy/Medication List:
Allergies
Allergy/AdvReac Type Severity Reaction Status Date / Time
labetalol (Labetalol) Allergy Rash Verified 12/03/24 05:14
Home Medications Table - record
�Medication �Instructions �Recorded �Confirmed
atorvastatin 10 mg tablet 10 mg PO DAILY High Cholesterol 10/03/23 12/03/24
losartan 100 mg tablet 100 mg PO DAILY Blood Pressure 10/03/23 12/03/24
peg 400-propylene glycol (PF) 0.4 1 drp BOTH EYES DAILYPRN PRN dry 10/03/23 12/03/24
%-0.3 % eye drops in a dropperette eyes
(Systane (PF))
eplerenone 50 mg tablet 50 mg PO BID Blood Pressure 12/03/24 12/03/24
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
(Plaquenil)
potassium citrate 10 mEq (1,080 20 meq PO BID Supplement 12/03/24 12/03/24
mg) tablet,extended release
triamterene 37.5 1 tab PO DAILY Blood Pressure 12/03/24 12/03/24
mg-hydrochlorothiazide 25 mg tablet
Review of Systems
-
A 12 point ROS was completed and negative except as noted: Yes
Physical Exam
Vital Signs
Vital Signs
Temp Pulse Resp BP Pulse Ox
98.5 F 87 11 127/95 98
12/03/24 04:50 12/03/24 10:00 12/03/24 10:00 12/03/24 10:00 12/03/24 10:00
Physical Exam
General: No Apparent Distress and Other (Appears to not feel well)
HEENT: NormoCephalic, Anicteric, Moist mucous membranes and Atraumatic
Respiratory: Clear
Cardiac: S1/S2 and Regular Rhythm
GI: Soft, Non Tender, Non Distended and Normal Bowel Sounds
Musculoskeletal: No Clubbing, No Cyanosis and No Edema
Skin: Warm and Dry
Neuro: Awake, Alert, Oriented and Other (Right horizontal nystagmus noted)
Psych: Calm
Laboratory Results
-
12/03/24 05:24
12/03/24 05:24
Laboratory Results
Total Bilirubin 0.3 mg/dl (0.2-1.3) 12/03/24 05:24
AST 22 U/L (14-36) 12/03/24 05:24
ALT 19 U/L (0-35) 12/03/24 05:24
Alkaline Phosphatase 72 U/L (38-126) 12/03/24 05:24
Impression/Plan
-
54-year-old female with a past medical history of Sjogren syndrome, adrenal adenoma, hypertension, hyperlipidemia, and hypokalemia presents with acute onset of worsening dizziness and vertigo since this morning. Patient reports that she had a
transient episode of vertigo on Tuesday, that lasted for seconds, and resolved spontaneously. She reports that this morning, she felt lightheaded, dizzy, and off balance. Associated symptoms include nausea. She did vomit once. She reports
intermittent headaches this month, currently is headache free. She was seen by PT in the ER, and found to have a positive [place]-Hallpike on the right side. Jesika maneuver was attempted but patient became nauseous and was not able to tolerate. Brain
MRI is negative for acute intracranial abnormality. She reports continued dizziness currently. Meclizine did not help. She denies chest pain, denies photophobia. No fever, no dysuria.
#Peripheral vertigo suspicious for BPPV
Place in observation status
Brain MRI done in the ER negative for acute intracranial pathology
Meclizine did not help, and she did not tolerate the Jesika maneuver by PT
Consult neurology, continue vestibular rehab, trial of Valium
#Sjogren's syndrome
Continue hydroxychloroquine
#Essential hypertension
Continue eplerenone, losartan, triamterene�hydrochlorothiazide
#History of hypokalemia
Continue potassium supplements
#Hyperlipidemia
Continue statin
#History of adrenal adenomas
DVT prophylaxis�SCDs
Full code
Updated at bedside 12/03
Total time spent to see the patient on the floor, examine the patient, review data and lab results, discuss treatment plan with patient, nursing staff around 75 minutes.
[2024-12-03] MEDS: VALIUM INJECTION 5 MG IV (11:02)
[2024-12-03] MEDS: ZOFRAN 4 MG IV (11:02)
--- NOTE | 2024-12-03 11:58 | CON.NEURO ---
Addendum entered and electronically signed by Giles Gandara MD 12/03/24 17:31:
Studies reviewed.
I have personally examined the patient. I reviewed and agree with the ECOLOGY TEACHER's Note.
My addenda:
Awake, alert, interactive. Appears uncomfortable.
Speech intact.
Follows 2-step requests w/o difficulty. No tremor.
Extra-ocular movements grossly intact.
Facial movements full and symmetric. Hearing intact to normal conversational volume.
Normal UE movements bilaterally.
Neck: full ROM.
Chest: no dyspnea
Heart: no JVD
Ext: (-) Clubbing, (-) Cyanosis, (-) Edema
IMPRESSIONS/RECOMMENDATIONS:
Abrupt onset of vertigo
Differential diagnosis includes BPPV although less likely based on the patient's absence of nystagmus currently. Differential diagnosis includes vertiginous migraine although the patient is not experiencing significant headache at this time.
Structural abnormality eliminated by MRI of brain
Switch from meclizine to dimenhydrinate
Continue vestibular therapy
No indication for high-dose steroids despite the patient's history of Sjogren syndrome
No indication for lumbar puncture at this time based on MRI normalcy
D/W patient / family / nursing
Will continue to follow as needed.
Original Note:
Neuro Assessment/Plan
Assessment
54 y/o female with past medical history of sjogren's syndrome, hlp, htn, type II renal tubular acidosis, presents to [facility] today with dizziness.
Plan
Impressions: vertigo with unclear etiology as brain MRI unrevealing and symptoms worse after vestibular therapy, BPPV unlikely
-meclizine ineffective, switch to dimenhydrinate as needed for dizziness
-change positions slowly
-physical therapy
Plan of care discussed with Dr. Gandara, patient and family
Consultation
Order
Date of Consultation: 12/03/24
Requesting Provider: ED
Reason for Consult: dizziness
Subjective/Objective
Subjective Data
Date of Service: December 03, 2024
The patient is a 54 y/o female with past medical history of sjogren's syndrome, hlp, htn, type II renal tubular acidosis, presented to [facility] today with dizziness and a sensation of the world tilting sideways, which she first experienced either
Tuesday or Tuesday morning last week while sitting on her couch. The episode lasted approximately three seconds. This morning, upon waking from sleep, she again felt dizzy and not right, even while still lying flat in bed. The dizziness worsens
with position changes, particularly when she is lying flat and looking down at her feet. She describes feeling 'lightheaded and spacey' and experiences a fear of passing out. She has no history of headaches or trauma to the head. Her symptoms
include a chronic headache for the past few weeks, which she attributes to Sj�grens syndrome. The patient denies vomiting, chest pain, shortness of breath, auditory changes, swallowing difficulties, speech difficulties, double vision, blurry vision,
and walking difficulties other than feeling lightheaded. There have been no fevers, nor any recent trauma to the head or neck. In March, she had her thyroid function checked, revealing an abnormal TSH but normal free T4 levels. She reports having
high blood pressure, high cholesterol, and a history of kidney problems, specifically renal tubular acidosis, which led to hospitalization the previous year. Her blood pressure was elevated on arrival, which she attributes to nervousness, she does
take losartan for her blood pressure. She had a physical therapy evaluation in the ED which worsened her nausea. She was given meclizine which was ineffective. Was given odansetron and diazepam with positive effect. Head CT and brain MRI
unremarkable. ECG normal sinus rhythm. Labs notable for TSH 5.94.
Objective Data
Vital Signs
Temp Pulse Resp BP Pulse Ox
98.5 F 92 14 127/95 97
12/03/24 04:50 12/03/24 10:45 12/03/24 10:45 12/03/24 10:00 12/03/24 10:45
Lab Results
12/03/24 05:24
12/03/24 05:24
Sodium 140 mmol/L (135-145) 12/03/24 05:24
Potassium 3.7 mmol/L (3.5-5.1) 12/03/24 05:24
BUN 18 mg/dl (7-17) H 12/03/24 05:24
Glucose 117 mg/dl (70-99) H 12/03/24 05:24
Calcium 9.4 mg/dl (8.4-10.2) 12/03/24 05:24
Patient Allergies
labetalol (Labetalol) Allergy (Verified 12/03/24 05:14)
Rash
Review of Systems
-
History Source: Patient
Constitutional: No Symptoms
EENT: No Symptoms Reported
Respiratory: No Symptoms
Cardiac: No Symptoms
Abdomen/GI: No Symptoms
Genitourinary: No Symptoms
Musculoskeletal: No Symptoms
Neuro: Dizzy
Physical Exam
-
General: Comfortable and Appears Stated Age
HEENT: Normocephalic and Atraumatic
Neck: Full Range of Motion
Respiratory: No Dyspnea
Cardiac: No JVD
GI: Non-distended
Skin: Warm and Dry
Extremities: No Clubbing, No Cyanosis and No Edema
Psych: Intact Judgement/Insight
Extended Neurological Exam
Mood & Affect: Mood Unremarkable
Attention Span & Concentration: Awake, Alert, Interactive and No Difficulty with 2 Step Request
Memory: Unremarkable
Tremor: Hand Tremor Absent and Head Tremor Absent
Speech: Quality Unremarkable, Quantity Unremarkable and Rate of Production Unremarkable
Cranial Nerve II: Left Eye: Visual Coreas Grossly Intact
Cranial Nerve II: Right Eye: Visual Coreas Grossly Intact
Cranial Nerves III, IV, : Extraocular Movement: Extraocular Movement Full in all Directions
Cranial Nerve VII: Facial Symmetry: Normal Facial Symmetry
Cranial Nerve VIII: Hearing: Unremarkable Hearing to Normal Conversational Volume
Muscle Strength, Overall: Full Throughout
Muscle Bulk & Tone: Bulk Unremarkable and Tone Unremarkable
Pronator Drift: No Drift in Upper Extremities and No Drift in Lower Extremities
Deep Tendon Reflexes: Unremarkable Throughout
Data Reviewed
-
CT Head: Report Reviewed and Image Reviewed
MRI Head: Report Reviewed and Image Reviewed
Labs: Report Reviewed
Reviewed with: Physician, Patient and Family
Old Records: Summarized
Medications
-
Active Medications
Generic Name Dose Route Start Last Admin
Trade Name Freq PRN Reason Stop Dose Admin
Ondansetron HCl 4 mg 12/03/24 10:53 12/03/24 11:02
Ondansetron 4 Mg/2 Ml Vial IV 12/31/24 10:52 4 mg
Q6HPRN PRN Administration
NAUSEA/VOMITING
Home Medications
�Medication �Instructions �Recorded
atorvastatin 10 mg tablet 10 mg PO DAILY High Cholesterol 10/03/23
losartan 100 mg tablet 100 mg PO DAILY Blood Pressure 10/03/23
peg 400-propylene glycol (PF) 0.4 1 drp BOTH EYES DAILYPRN PRN dry 10/03/23
%-0.3 % eye drops in a dropperette eyes
(Systane (PF))
eplerenone 50 mg tablet 50 mg PO BID 12/03/24
hydroxychloroquine 200 mg tablet 200 mg PO BID 12/03/24
(Plaquenil)
potassium citrate 10 mEq (1,080 20 meq PO BID 12/03/24
mg) tablet,extended release
triamterene 37.5 1 tab PO DAILY 12/03/24
mg-hydrochlorothiazide 25 mg tablet
Past History
Past History
ED Past Medical History: HTN, Hypercholesterolemia and Other (Sjogren syndrome); Negative IDDM or NIDDM
ED Past Surgical History: Gynecological; Negative Appendectomy, Bowel resection, Cardiac or Cholecystectomy
Family/Social History
Tobacco: Non-smoker
Alcohol: None
Drug: None
Personal:
Living: with family
Employment: Employed
Family History: Other (Sister with gallbladder disease); Negative Early CAD or CAD
--- NOTE | 2024-12-03 13:15 | PTCARENOTE ---
pt admitted from ED to room 402-01. pt ambulated from stretcher to bed with standby assist. standing weight obtained. pt reports feeling dizzy with any movement of her head. pt assisted to bathroom with standby assist. AAOX3, generalized weakness
noted. pt denies nausea at this time. pt put on telemetry, normal sinus rhythm heart rate in 80-90s. pulses palpable no edema. pt on room air, lung sounds clear. active bowel sounds. voiding in bathroom. pt updated on plan of care, oriented to room.
see worklist for full nursing assessment
[2024-12-03] MEDS: PLAQUENIL 200 MG PO ×2 (14:09→20:02)
[2024-12-03] MEDS: COZAAR 100 MG PO (14:09)
[2024-12-03] MEDS: dimenhyDRINATE 50 MG IV (14:17)
[2024-12-03] MEDS: NSS (PRESERVATIVE FREE) 10 ML INJ (14:17)
--- NOTE | 2024-12-03 17:01 | VATNOTE ---
During routine assessment of PIV, pt noted pain at site and redness noted. PIV removed and new PIV established. Heat applied to old PIV site and pt education regarding phlebitis management completed.
--- NOTE | 2024-12-03 20:00 | PTCARENOTE ---
Resumed care of pt laying in bed AAOx3. Pt reports throbbing headache, dizziness/ vertigo with head movement side to side. Tylenol administered as ordered. No other issues to report at this time. Will continue to monitor.
[2024-12-03] MEDS: TYLENOL 650 MG PO (20:02)
[2024-12-03] MEDS: INSPRA 50 MG PO (20:03)
[2024-12-03] MEDS: UROCIT-K 20 MEQ PO (20:03)
[2024-12-03] MEDS: VALIUM 5 MG PO (21:35)
--- NOTE | 2024-12-03 21:37 | PTCARENOTE ---
pt ambulatory to bathroom. Pt with continued vertigo symptoms. Pt reports no improvement in headache post Tylenol administration. Pt reports head throbbing is intermittent in nature. PRN Valium administered as ordered. Will continue to monitor.
[2024-12-03] MEDS: REFRESH EYE DROPS (PF) 1 DROPS BOTH EYES (23:25)
[2024-12-04 03:57] VITALS: BP 132/74
[2024-12-04 07:25] VITALS: BP 142/86
--- NOTE | 2024-12-04 09:18 | W.PN.HOSP.TC ---
Today's Communication/Plan
-
see plan
Assessment / Plan
Assessment / Plan
54-year-old female with a past medical history of Sjogren syndrome, adrenal adenoma, hypertension, hyperlipidemia, and hypokalemia presents with acute onset of worsening dizziness and vertigo since this morning. Patient reports that she had a
transient episode of vertigo on Tuesday, that lasted for seconds, and resolved spontaneously. She reports that this morning, she felt lightheaded, dizzy, and off balance. Associated symptoms include nausea. She did vomit once. She reports
intermittent headaches this month, currently is headache free. She was seen by PT in the ER, and found to have a positive [place]-Hallpike on the right side. Jesika maneuver was attempted but patient became nauseous and was not able to tolerate. Brain
MRI is negative for acute intracranial abnormality. She reports continued dizziness currently. Meclizine did not help. She denies chest pain, denies photophobia. No fever, no dysuria.
MRI
IMPRESSION:
1. No MRI evidence for acute infarct or intracranial hemorrhage.
2. Mild paranasal sinus mucosal disease.
3. Small central disc herniation at C3/C4 causing mild spinal cord compression.
#Peripheral vertigo suspicious for BPPV
Place in observation status
Brain MRI done in the ER negative for acute intracranial pathology
Meclizine did not help, and she did not tolerate the Jesika maneuver by PT; s/p dimenhydrinate ordered by neurology without significant effect
Valium and Zofran helpful for symptoms
PT to reevaluate today then expect DC
outpatient vestibular PT script in chart
#Sjogren's syndrome
Continue hydroxychloroquine
#Essential hypertension
Continue eplerenone, losartan, triamterene�hydrochlorothiazide
#History of hypokalemia
Continue potassium supplements
#Hyperlipidemia
Continue statin
#History of adrenal adenomas
DVT prophylaxis�SCDs
Full code
Updated at bedside 12/03
Total time spent to see the patient on the floor, examine the patient, review data and lab results, discuss treatment plan with patient, nursing staff around 75 minutes.
Anticipated Discharge: Within 24 hours
Subjective/Interval History
-
Date of Service: December 04, 2024
remains with nausea and dizziness if she turns too suddenly
no vomiting
headache resolved with Valium yesterday evening
Objective Data
-
Vital Signs:
Vital Signs
Temp Pulse Resp BP Pulse Ox
97.6 F 68 16 142/86 95
12/04/24 07:25 12/04/24 07:25 12/04/24 07:25 12/04/24 07:25 12/04/24 09:11
I&O
12/03/24 12/04/24 12/05/24
06:59 06:59 06:59
Intake Total 1440 / 1440
Balance 1440 / 1440
Review of Systems
-
History Source: Patient
All other systems: Reviewed and negative
Physical Exam
-
General: No Apparent Distress
HEENT: PERRLA and Other (no nystagmus )
Respiratory: Clear to Auscultation; Negative Wheezes or Rales
Cardiac: Regular Rhythm and S1/S2
GI: Soft and Nontender
Skin: Warm and Dry; Negative Rash
Neuro: AO x 3
Psych: Calm
Data Reviewed
-
Diagnostic Radiology: Report Reviewed by me
[2024-12-04] MEDS: COZAAR 100 MG PO (09:26)
[2024-12-04] MEDS: INSPRA 50 MG PO (09:26)
[2024-12-04] MEDS: UROCIT-K 20 MEQ PO (09:26)
[2024-12-04] MEDS: DYAZIDE 1 CAPSULE PO (09:26)
[2024-12-04] MEDS: PLAQUENIL 200 MG PO (09:27)
[2024-12-04] MEDS: LIPITOR 10 MG PO (09:27)
[2024-12-04 10:41] VITALS: BP 142/82; PULSE 68
[2024-12-04 11:02] VITALS: BP 138/82
--- NOTE | 2024-12-04 11:04 | W.DS.TRANS ---
DC Summary - Import/Export Administrator
-
Discharge Instructions:
Discharge Diagnosis/Procedures benign paroxysmal positional vertigo
Diet Regular
Activity As tolerated
Driving Restrictions do not drive after taking Valium
Bathing Restrictions None
Other Services PT
Instructions:
Stand-Alone Forms:
Changes to Home Medications: Yes
Discharge Medications:
DC Medications w/original date entered in [facility]
atorvastatin 10 mg tablet 10 mg PO DAILY High Cholesterol 10/03/23
losartan 100 mg tablet 100 mg PO DAILY Blood Pressure 10/03/23
peg 400-propylene glycol (PF) 0.4 %-0.3 % eye drops in a dropperette (Systane (PF)) 1 drp BOTH EYES DAILYPRN PRN dry eyes 10/03/23
eplerenone 50 mg tablet 50 mg PO BID Blood Pressure 12/03/24
hydroxychloroquine 200 mg tablet (Plaquenil) 200 mg PO BID Autoimmune Disorder 12/03/24
potassium citrate 10 mEq (1,080 mg) tablet,extended release 20 meq PO BID Supplement 12/03/24
triamterene 37.5 mg-hydrochlorothiazide 25 mg tablet 1 tab PO DAILY Blood Pressure 12/03/24
diazepam 5 mg tablet 5 mg PO TIDPRN PRN dizziness #5 tabs 12/04/24
ondansetron 4 mg disintegrating tablet 4 mg PO Q8H PRN nausea and vomiting #8 tabs 12/04/24
Home Medication Changes
You are prescribed Valium and Zofran to take as needed.
Pending Results: No
--- NOTE | 2024-12-04 12:54 | CM ---
Alert awake oriented patient who lives with her Iron in a 3 story home with 2 steps to enter and 14 steps to bed/bathroom.She4 is independent will all ADLs. She drives. Observation letter explained to pt and . All questions
answered. Offered VN she declined need at this time.
NO DME
No VN /SNF
Pharmacy [facility] [place]
PCP Dr Arias
PLAN Home no needs
--- NOTE | 2024-12-04 13:47 | W.DCSUMMARY ---
Discharge Summary
Discharge Data
Date of Admission: 12/03/24
Date of Discharge: 12/04/24
-
Pending Results: No
Hospital Course
Discharging Physician : Dr. Tabby Paiz
Disposition : Home
Primary care physician : Dr. Bethany Arias
Principal Discharge diagnosis : Benign Paroxysmal Positional Vertigo
Hospital Course :
Ms. Elly Chandler is a 54-year-old female with a past medical history of Sjogren syndrome, adrenal adenoma, hypertension, hyperlipidemia, and hypokalemia presents with acute onset of worsening dizziness and vertigo. Triage vitals stable, labs with
glucose 117, no leukocytosis. Head CT unremarkable and MRI without acute infarct or structural abnormality. She was seen by PT and found to have positive Froy-Hallpike testing, could not tolerate Jesika maneuver 2/2 nausea and vomiting. She was
admitted overnight to medicine for further symptomatic management. The following day she was able to complete Jesika maneuver with PT. Symptoms mildly improved. She is discharged home with script for outpatient vestibular therapy. She is also
prescribed several pills of PRN Valium and Zofran.
Time spent on discharge was 31 minutes.
Important imaging findings :
HEAD CT
IMPRESSION:
Unremarkable unenhanced CT of the brain
Procedure findings :
Discharge Plan
-
Patient Disposition: Home (Routine Discharge)
Discharge Diagnosis/Procedures: benign paroxysmal positional vertigo
Diet: Regular
Activity: As tolerated
Driving Restrictions: do not drive after taking Valium
Bathing Restrictions: None
Other Services: PT
Referrals:
Bethany Arias DO [Family Provider, Family Practice] - in less than 1 week
Additional Discharge Medication Instructions: You are prescribed Valium and Zofran to take as needed.
Prescriptions:
New
diazepam 5 mg Tablet
5 mg PO TIDPRN PRN (Reason: dizziness) Qty: 5 0RF
ondansetron 4 mg tablet,disintegrating
4 mg PO Q8H PRN (Reason: nausea and vomiting) Qty: 8 0RF
Continued
atorvastatin 10 mg Tablet
10 mg PO DAILY
losartan 100 mg Tablet
100 mg PO DAILY
Systane (PF) 0.4-0.3 % Dropperette
1 drp BOTH EYES DAILYPRN PRN (Reason: dry eyes)
triamterene-hydrochlorothiazid 37.5-25 mg Tablet
1 tab PO DAILY
hydroxychloroquine [Plaquenil] 200 mg Tablet
200 mg PO BID
potassium citrate 10 mEq (1,080 mg) tablet extended release
20 meq PO BID
eplerenone 50 mg tablet
50 mg PO BID
Discharge Orders:
Discharge Patient (As Directed); Ordered 12/04/24
Ordered By: Tabby Paiz
Discharge Date and Time
Discharge Date/Time: 12/04/24 12:40
Print Language: CITIZEN [place]
== END 2024-12-04 12:40 | disposition home or self-care (01) ==
LOC: 4 EAST ACU 11:40
PROVIDERS: Physician Assistant; ADMITTING PHYSICIAN Family Medicine; ATTENDING PHYSICIAN Student in an Organized Health Care Education/Training Program; CONSULT PHYSICIAN Psychiatry & Neurology Neurology; EMERGENCY PHYSICIAN Student in an Organized Health Care Education/Training Program; FAMILY PHYSICIAN Family Medicine
DX: H81.10 Benign paroxysmal vertigo, unspecified ear (principal); I10 Essential (primary) hypertension; R51.9 Headache, unspecified; M35.00 Sjogren syndrome, unspecified; N25.89 Other disorders resulting from impaired renal tubular function; E78.00 Pure hypercholesterolemia, unspecified; R94.31 Abnormal electrocardiogram [ECG] [EKG]; M50.01 Cervical disc disorder with myelopathy, high cervical region; R11.2 Nausea with vomiting, unspecified; Z90.49 Acquired absence of other specified parts of digestive tract; Z85.828 Personal history of other malignant neoplasm of skin; Z83.79 Family history of other diseases of the digestive system; Z79.899 Other long term (current) drug therapy; Z88.8 Allergy status to other drugs, medicaments and biological substances; Z86.018 Personal history of other benign neoplasm; Z90.710 Acquired absence of both cervix and uterus
CPT/HCPCS: 70450; 70551; 80053; 84439; 84443; 85025; 93005; 97112; 99285; G0378; J1240

== ENCOUNTER 2024-12-13 13:04 | Outpatient (RCR) | payer OTHER, SELFPAY | END 2024-12-13 23:59 | disposition home or self-care (01) | LOC: RPT 13:04 | PROVIDERS: ATTENDING PHYSICIAN Student in an Organized Health Care Education/Training Program; FAMILY PHYSICIAN Family Medicine | DX: H81.11 Benign paroxysmal vertigo, right ear (principal); Z73.6 Limitation of activities due to disability | CPT/HCPCS: 97112; 97162 ==

== ENCOUNTER → 2024-12-29 14:12 | Outpatient (REF) | payer OTHER, SELFPAY | LOC: WDC 14:12 | PROVIDERS: ATTENDING PHYSICIAN Obstetrics & Gynecology; FAMILY PHYSICIAN Family Medicine | DX: Z12.31 Encounter for screening mammogram for malignant neoplasm of breast (principal) | CPT/HCPCS: 77063; 77067 ==

== ENCOUNTER 2025-01-11 14:23 | Outpatient (RCR) | payer OTHER, SELFPAY | END 2025-01-11 23:59 | disposition home or self-care (01) | LOC: RPT 14:23 | PROVIDERS: ATTENDING PHYSICIAN Family Medicine | DX: H81.11 Benign paroxysmal vertigo, right ear (principal); Z73.6 Limitation of activities due to disability | CPT/HCPCS: 97110; 97112; 97530 ==